=== PATIENT | male | born 1965 | race Caucasian/White ===

== ENCOUNTER → 2022-01-02 11:08 | Outpatient (BNVA) | payer MEDICAID, SELFPAY | PROVIDERS: PCP Nurse Practitioner Family; Visit Provider Nurse Practitioner Family | DX: R63.5 Abnormal weight gain (principal); Z12.5 Encounter for screening for malignant neoplasm of prostate; Z13.6 Encounter for screening for cardiovascular disorders; R52 Pain, unspecified; R05.9 Cough, unspecified | CPT/HCPCS: 80053; 80061; 84443; 85025; G0103 ==

== ENCOUNTER → 2022-07-16 08:59 | Outpatient (BNVA) | payer BC, MEDICAID, SELFPAY | PROVIDERS: PCP Nurse Practitioner Family; Referring Provider Family Medicine; Visit Provider Physician Assistant | DX: M47.16 Other spondylosis with myelopathy, lumbar region (principal) | CPT/HCPCS: 72110 ==

== ENCOUNTER 2022-09-02 09:07 | Outpatient (CLI) | payer BC, MEDICAID, SELFPAY ==
--- NOTE | 2022-09-02 09:13 | MR_ITS ---
WS: [id number] MRI LUMBAR SPINE NONCONTRAST HISTORY: back pain, RIGHT leg pain. COMPARISON: None available. TECHNIQUE: Sagittal and axial multisequence imaging is submitted. Increase in the lumbar lordosis. Mild degenerative changes at the thoracolumbar junction. Mild anteri or wedging of T10 and T11. No acute fracture. Disc spaces and vertebral body heights are well-preserved. Conus terminates normally at L1-2 disc level. T12-L1: Small bilateral proximal foraminal disc protrusion without stenosis. L1-L2: Moderate bilateral facet joint arthritis and ligamentum flavum arthritis. Mild bilateral onel inal narrowing. Mild encroachment into the central canal by facet disease. L2-L3: Mild annular disc bulging, osteophytic ridging and facet arthritis. Small amount of fluid in t he facet joints. Mild LEFT foraminal stenosis. Very mild encroachment upon the subarticular recesses. L3-L4: Diffuse annular disc bulging with moderate ligamentum flavum and circumferential osteophytosis . Disc and osteophyte encroachment upon the thecal sac and foramina. Small central disc protrusion is also likely. There is moderate central, bilateral subarticular recess and foraminal stenosis. There is contact on the L3 and L4 nerve roots. L4-L5: Mild disc bulging with moderate ligamentum flavum and facet arthritis. Osteophytic ridging and facet arthritis. Bilateral subarticular and foraminal stenosis. There is significant encroachment on the exiting L4 nerve roots bilaterally. There may be an osteophyte contacting the RIGHT L4 nerve genaro t. L5-S1: Mild disc bulging with a small disc osteophyte complex in the LEFT foramen. Mild LEFT foramina l stenosis. MR/MR lumbar spine wo con* [id number] IMPRESSION: 1. No high-grade central stenosis. 2. Moderate central, bilateral subarticular recess and foraminal stenosis at L 3-4. Disc, osteophyte and facet arthritis encroaching upon the L3 and L4 nerve roots. 3. Significant encroachment upon the exiting L4 nerve roots at L4-5. Suspected osteophyte also contacting the RIGHT L4 nerve root. 4. Mild LEFT foraminal stenosis at L5-S1. 5. Mild foraminal stenosis at L1-2 and on the LEFT at L2-3.
== END 2022-09-02 09:08 | disposition home or self-care (01) ==
LOC: RAD 09:07
PROVIDERS: PCP Nurse Practitioner Family; Visit Provider Physician Assistant
DX: M54.16 Radiculopathy, lumbar region (principal); M48.061 Spinal stenosis, lumbar region without neurogenic claudication; M48.07 Spinal stenosis, lumbosacral region
CPT/HCPCS: 72148

== ENCOUNTER 2022-12-26 14:10 | Emergency (ER) | payer BC, MEDICAID, SELFPAY ==
[2022-12-26 14:19] VITALS: BP 153/83; PULSE 67; RESP 18; TEMP 36.4; O2SAT 97
[2022-12-26 15:05] LABS: Basophils # 0.1 10^3/uL (0.0-0.1); Eosinophils # 0.3 10^3/uL (0.0-0.8); Eosinophils % 2.3 %; Hematocrit 51.6 % (42.0-52.0); Hemoglobin 16.3 g/dL (11.7-16.6); Lymphocytes # 2.2 10^3/uL (0.8-4.8); Lymphocytes % 18.5 %; Mean Corpuscular HGB Conc 31.6 g/dL (30.0-36.0); Mean Corpuscular Hemoglobin 31.3 pg (28.0-34.0); Mean Platelet Volume 11.1 fL (7.4-10.4); Monocytes # 1.1 10^3/uL (0.2-0.9); Monocytes % 8.8 %; Neutrophils # 8.21 10^3/uL (1.8-7.7); Neutrophils % 68.8 %; Nucleated Red Blood Cells % 0 %; Platelet Count 243 10^3/cmm (130-400); Red Blood Count 5.21 10^6/uL (4.1-5.3); Red Cell Distribution Width 14.5 % (12.1-15.1); White Blood Count 11.9 10^3/uL (4.0-10.0)
--- NOTE | 2022-12-26 15:23 | PC.NURSE ---
After blood draw pt c/o chest pain, EKG done in triage room and shown to Dr Berrios. Pt denies other complaints, states he just feels stressed.
[2022-12-26 15:30] LABS: Alanine Aminotransferase 28 U/L (0-41); Albumin Level 3.7 g/dL (3.5-5.2); Alkaline Phosphatase 88 U/L (40-130); Anion Gap 11.8 (5-19); Aspartate Amino Transferase 14 U/L (0-40); Blood Urea Nitrogen 14 mg/dL (6-20); Calcium 8.8 mg/dL (8.5-10.5); Carbon Dioxide 30 mmol/L (22-29); Chloride 100 mmol/L (98-107); Globulin 3.1 g/dL (1.3-4.6); Glomerular Filtration Rate 87.3 mL/min (90-130); Glucose 141 mg/dL (65-115); Osmolality Calculated 287 mOsm/kg (285-295); Potassium 4.8 mmol/L (3.5-5.1); Sodium 137 mmol/L (136-145); Total Bilirubin 0.5 mg/dL (0.15-1.2); Total Protein 6.8 g/dL (6.6-8.7)
--- NOTE | 2022-12-26 16:08 | ED_ITS ---
HPI - Headache General: Chief Complaint: Headache Stated Complaint: Head, Neck, and Shoulder pain Time Seen by Provider: 12/26/22 16:04 Source: patient Mode of arrival: ambulatory History of Present Illness: 57-year-old male presents emergency room complaining of head neck and shoulder pain. He had an epidural injection 3 days ago for low back pain with radicular symptoms. Since then he has been having a headache is worse when he sits up better a little bit when he lays down. He has not had any fevers sweats or chills. He is tried various [id number] medications for it with no relief. He denies any chest pain with this. No significant loss of vision. No difficulty speech or swallowing. MD elicited complaint: headache Onset (ago): day(s) (3) Onset description: gradually Location: left, frontal, temporal and down into neck Severity: moderate Quality & Timing: throbbing Exacerbating factors: none Relieving factors: nothing Associated symptoms: Deny chest pain, confusion, cough, diaphoresis, eye pain, eye redness, fever(s), lightheadedness, loss of vision, malaise, nausea, neck stiffness, numbness, paresthesias, photophobia, pre-syncope, rash, seizures, short of breath, sound sensitivity, syncope, vomiting or weakness Treatments prior to arrival: acetaminophen and ibuprofen Review of Systems Const: Denies: fever(s), chills, fatigue, malaise or diaphoresis ENMT: Denies: throat pain, ear or mastoid pain, nasal discharge or nasal congestion Card: Denies: chest pain, lightheadedness, syncope or pre-syncope Resp: Denies: dyspnea, productive cough or non-productive cough GI: Denies: nausea or vomiting : Denies: flank pain, dysuria, urinary frequency or urinary urgency Skin/Breast: Denies: rash Neuro: Denies: confusion PFSH ED PFSH: Medical History Family history of colon cancer History of diverticulitis Surgical History History of nasal surgery History of rotator cuff surgery Left shoulder 1987 Hx of colonoscopy 2013 Family History Father Cancer Colon Cancer Social History Smoking and tobacco status: current every day smoker Second hand smoke exposure: No Smoking risk assessment/counseling performed?: No Alcohol intake: never Desire information about alcohol rehabilitation?: No Counseling given: No Desire information about substance/drug rehabilitation?: No Counseling given: No Adopted: No Caregiver/support person: No Lives independently: Yes Household members: friend(s) Housing: House Marital status: Single Number of children: 5 Highest education level completed: 10th Grade service: No Current occupational status: disabled Physical Exam Const: COMMON NORMALS: no acute distress GENERAL APPEARANCE: cooperative and comfortable ORIENTATION/CONSCIOUSNESS: Yes awake, Yes oriented to person, Yes oriented to place and Yes oriented to time HENMT: COMMON NORMALS: normocephalic, atraumatic and hearing grossly normal bilaterally HEAD & SCALP: normocephalic and atraumatic Eye: DIRECT OPHTHALMOSCOPY: No photophobia Resp: COMMON NORMALS: normal respiratory effort, No retractions, No use of accessory muscles and clear to auscultation bilaterally AUSCULTATION: clear to auscultation bilaterally Cardio: COMMON NORMALS: regular rate, regular rhythm and No murmurs present (Cardio) RATE: regular rate RHYTHM: regular rhythm GI: COMMON NORMALS: Soft to palpation and No hepatosplenomegaly present AUSCULTATION: Yes normoactive bowel sounds PALPATION: Yes Soft to palpation, No Tenderness to palpation present (GI), No Guarding due to palpation present (GI) and Yes No hepatosplenomegaly present Extremity: COMMON NORMALS: normal to inspection, capillary refill normal, no clubbing, cyanosis or edema, no calf tenderness and no pedal edema Neuro: SENSORIUM/ORIENTATION: Yes oriented to person, Yes oriented to place and Yes oriented to time OTHER: No focal neurologic deficits Skin: COMMON NORMALS: no rashes or lesions noted GENERAL SKIN EXAM: no rashes or lesions noted Course Vital Signs: Vital signs: Vital Signs Temperature 97.5 F L 12/26/22 14:19 Pulse Rate 58 L 12/26/22 18:32 Respiratory Rate 16 12/26/22 18:32 Blood Pressure 134/84 12/26/22 18:32 Pulse Oximetry 95 12/26/22 18:32 Oxygen Delivery Me thod 12/26/22 14:19 MDM - Headache Medical Decision Making Patient feeling better after fluids and medication. I did call and discussed Dr. Walter who did his injection it was a foraminal nerve root injection they did not merino the dura so this is not a post spinal tap headache and on exam and by his history it does not sound as if it is a spinal type headache he actually states he feels better when he is sitting up little bit and worse when lying down flat. Discharge patient home with steroid taper use previously prescribed pain medications and follow-up with the pain clinic Medical Records I reviewed the patient's medical records. Lab Data I reviewed the patient's lab results. 12/26/22 15:00 12/26/22 15:[address] 12/26/22 17:20 IMPRESSION: 1. No acute intracranial abnormality. 2. 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 Laboratory Results WBC 11.9 10^3/uL (4.0-10.0) H 12/26/22 15:00 RBC 5.21 10^6/uL (4.1-5.3) 12/26/22 15:00 Hgb 16.3 g/dL (11.7-16.6) 12/26/22 15:00 Hct 51.6 % (42.0-52.0) 12/26/22 15:00 MCV 99.0 fl (80-94) H 12/26/22 15:00 MCH 31.3 pg (28.0-34.0) 12/26/22 15:00 MCHC 31.6 g/dL (30.0-36.0) 12/26/22 15:00 RDW 14.5 % (12.1-15.1) 12/26/22 15:00 Plt Count 243 10^3/cmm (130-400) 12/26/22 15:00 MPV 11.1 fL (7.4-10.4) H 12/26/22 15:00 Neut % (Auto) 68.8 % 12/26/22 15:00 Lymph % (Auto) 18.5 % 12/26/22 15:00 [place] % (Auto) 8.8 % 12/26/22 15:00 Eos % (Auto) 2.3 % 12/26/22 15:00 Baso % (Auto) 1.0 % 12/26/22 15:00 Neut # (Auto) 8.21 10^3/uL (1.8-7.7) H 12/26/22 15:00 Lymph # (Auto) 2.2 10^3/uL (0.8-4.8) 12/26/22 15:00 [place] # (Auto) 1.1 10^3/uL (0.2-0.9) H 12/26/22 15:00 Eos # (Auto) 0.3 10^3/uL (0.0-0.8) 12/26/22 15:00 Baso # (Auto) 0.1 10^3/uL (0.0-0.1) 12/26/22 15:00 Nucleated RBC % (auto) 0 % 12/26/22 15:00 Nucleated RBCs # 0.0 /100WBC 12/26/22 15:00 Sodium 137 mmol/L (136-145) 12/26/22 15:00 Potassium 4.8 mmol/L (3.5-5.1) 12/26/22 15:00 Chloride 100 mmol/L (98-107) 12/26/22 15:00 Carbon Dioxide 30 mmol/L (22-29) H 12/26/22 15:00 Anion Gap 11.8 (5-19) 12/26/22 15:00 BUN 14 mg/dL (6-20) 12/26/22 15:00 Creatinine 0.9 mg/dL (0.7-1.2) 12/26/22 15:00 GFR Calculation 87.3 mL/min (90-130) L 12/26/22 15:00 Glucose 141 mg/dL (65-115) H 12/26/22 15:00 Calculated Osmolality 287 mOsm/kg (285-295) 12/26/22 15:00 Calcium 8.8 mg/dL (8.5-10.5) 12/26/22 15:00 Total Bilirubin 0.5 mg/dL (0.15-1.2) 12/26/22 15:00 AST 14 U/L (0-40) 12/26/22 15:00 ALT 28 U/L (0-41) 12/26/22 15:00 Alkaline Phosphatase 88 U/L (40-130) 12/26/22 15:00 Total Protein 6.8 g/dL (6.6-8.7) 12/26/22 15:00 Albumin 3.7 g/dL (3.5-5.2) 12/26/22 15:00 Globulin 3.1 g/dL (1.3-4.6) 12/26/22 15:00 Discharge Plan Discharge Patient Disposition: Home Clinical Impression: Headache Condition: Stable Prescriptions: New prednisone 20 mg tablet 20 mg PO TID Qty: 15 0RF Rx Instructions: 1 p.o. 3 times daily x3 days, 1 p.o. twice daily x2 days, 1 p.o. daily x2 days No Action mupirocin 2 % ointment 1 applic topical BID Qty: 22 1RF triamcinolone acetonide 0.05 % ointment 1 applic topical BID Qty: 80 1RF hydrocodone-acetaminophen 7.5-325 mg tablet 1 tab PO BID PRN (Reason: pain) 30 Days Qty: 60 0RF ibuprofen 400 mg tablet 400 mg PO TID PRN (Reason: pain) Qty: 90 1RF Rx Instructions: headache and inflammation ondansetron HCl 4 mg tablet 4 mg PO Q6H PRN (Reason: nausea and vomiting) Qty: 60 3RF Discharge Orders: Discharge ED (Routine); Ordered 12/26/22 Ordered By: Nabor Berrios Referrals: Trisitn Byrne DO [Primary Care Provider] - Discharge Diet: Usual diet Discharge Activity: Increase activity as tolerated Patient Instructions: Opioid Safety, Pain Management Activity Restrictions/Additional Instructions: You are seen today for headache with neck and arm pain. CT of your head was negative. Recommend you take the steroid dose and taper. 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
[2022-12-26] MEDS: ketorolac 30 mg/mL INJ IVP (16:30)
[2022-12-26] MEDS: promethazine 25 mg/mL SDV 1 mL IM (16:31)
[2022-12-26] MEDS: sodium chloride 0.9% 1,000 ML 999 ML IV (16:31)
[2022-12-26 16:37] VITALS: BP 137/84; PULSE 65; RESP 16; O2SAT 95
--- NOTE | 2022-12-26 17:07 | PC.NURSE ---
PT RESTING IN BED. LIGHTS DIMMED DUE TO LIGHTS MAKING HEADACHE WORSE. PT RR EVEN AND UNLABORED.
--- NOTE | 2022-12-26 17:20 | CTR_ITS ---
PROCEDURE INFORMATION: Exam: CT Head Without Contrast Exam date and time: 12/26/2022 5:36 PM Age: 57 years old Clinical indication: Pain; Headache; Additional info: New onset headache TECHNIQUE: Imaging protocol: Computed tomography of the head without contrast. Radiation optimization: All CT scans at this facility use at least one of these dose optimization techniques: automated exposure control; mA and/or kV adjustment per patient size (includes targeted exams where dose is matched to clinical indication); or iterative reconstruction. REPORTING DATA: Count of CT and Cardiac NM exams in prior 12 months: This patient has received 0 known CTs and 0 known cardiac nuclear medicine studies in the 12 months prior to the current study. COMPARISON: No relevant prior studies available. RADIATION DOSE METRICS: Total DLP (mGy-cm): 1101.48 FINDINGS: Brain: No acute infarct. No hemorrhage. Unremarkable white matter. No mass effect. Cerebral ventricles: No ventriculomegaly. 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 Paranasal sinuses: Visualized sinuses are unremarkable. No fluid levels. Scattered paranasal sinus mucosal thickening, without air-fluid level present. Mastoid air cells: Visualized mastoid air cells are well aerated. Bones/joints: Unremarkable. No acute fracture. Soft tissues: Unremarkable. CT/CT head wo con* [id number] IMPRESSION: 1. No acute intracranial abnormality. 2. 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
[2022-12-26 18:00] VITALS: BP 139/73; PULSE 55; O2SAT 94
[2022-12-26 18:32] VITALS: BP 134/84; PULSE 58; RESP 16; O2SAT 95
== END 2022-12-26 18:33 | disposition home or self-care (01) ==
PROVIDERS: Emergency Medicine; Emergency Provider Family Medicine; PCP Family Medicine
DX: R51.9 Headache, unspecified (principal); F17.210 Nicotine dependence, cigarettes, uncomplicated
CPT/HCPCS: 36415; 70450; 80053; 85025; 96361; 96372; 96374; 99285; J1885; J2550; J7030

== ENCOUNTER → 2022-12-31 15:21 | Outpatient (BNVA) | payer BC, MEDICAID, SELFPAY | PROVIDERS: PCP Family Medicine; Visit Provider Orthopaedic Surgery | DX: M48.062 Spinal stenosis, lumbar region with neurogenic claudication (principal); M16.0 Bilateral primary osteoarthritis of hip; M41.9 Scoliosis, unspecified | CPT/HCPCS: 73502 ==

== ENCOUNTER 2024-01-25 13:46 | Emergency (ER) | payer OTHER, SELFPAY ==
[2024-01-25 13:58] VITALS: BP 152/79; PULSE 67; RESP 18; TEMP 36.6; O2SAT 94; BMI 54.9
--- NOTE | 2024-01-25 14:14 | W.ED.ABDPA2 ---
HPI - Abdominal Pain General: Chief Complaint: Abdominal Pain Stated Complaint: abd pain Time Seen by Provider: 01/25/24 14:04 History of Present Illness: 58-year-old pleasant gentleman comes in today with right abdominal pain that started in the right lower abdomen and now radiates to his groin and into his right flank. Patient reports the pain started 2 to 3 days ago. Patient had a normal bowel movement last night. Patient noted no blood in stool or urine. Patient has had a colonoscopy and endoscopy in the past without any concerns. Patient has had no abdominal surgeries. Patient takes no routine medications and denies chronic medical problems. Review of the patient's record notes that tamsulosin has been ordered in the past for patient. Patient is morbidly obese. Patient reports no blood sugar problems. Patient does use nicotine. Review of Systems General: Reports: 10 or more systems reviewed and unremarkable except in HPI and below GI: Reports: abdominal pain PFSH ED PFSH: Medical History Family history of colon cancer History of diverticulitis Surgical History History of nasal surgery History of rotator cuff surgery Left shoulder 1988 Hx of colonoscopy 2014 Family History Father Cancer Colon Cancer Social History Smoking and tobacco/nicotine status: current every day tobacco/nicotine user Second hand smoke exposure: No Alcohol intake: never Substance/Drug Use: never Adopted: No Caregiver/support person: No Lives independently: Yes Household members: friend(s) Housing: House Marital status: Single Number of children: 5 Highest education level completed: 10th Grade service: No Current occupational status: disabled Physical Exam Const: COMMON NORMALS: alert HENMT: COMMON NORMALS: normocephalic HEAD & SCALP: normocephalic Neck/C-Spine: COMMON NORMALS: full ROM Resp: COMMON NORMALS: normal respiratory effort and clear to auscultation bilaterally AUSCULTATION: clear to auscultation bilaterally Cardio: COMMON NORMALS: regular rate and regular rhythm RATE: regular rate RHYTHM: regular rhythm GI: COMMON NORMALS: Soft to palpation AUSCULTATION: Yes normoactive bowel sounds PALPATION: Yes Soft to palpation and Yes Tenderness to palpation present (GI) Details: RLQ and RUQ : BLADDER/KIDNEY EXAM: Yes CVA tenderness on the right Back/Pelvis: GENERAL BACK: Yes CVA tenderness LUMBAR SPINE/LOWER BACK: Yes paraspinal muscle tenderness Lumbar paraspinal muscle tenderness: right Extremity: COMMON NORMALS: normal to inspection and no pedal edema Neuro: SENSORIUM/ORIENTATION: Yes alert Skin: COMMON NORMALS: turgor normal GENERAL SKIN EXAM: turgor normal Course Vital Signs: Vital signs: Vital Signs Temperature 97.9 F 01/25/24 13:58 Pulse Rate 64 01/25/24 14:57 Respiratory Rate 16 01/25/24 14:57 Blood Pressure 145/82 01/25/24 14:57 Pulse Oximetry 92 01/25/24 14:57 Oxygen Delivery Me thod Room Air 01/25/24 14:57 MDM - Abdominal Pain Medical Decision Making 58-year-old male patient comes in today for complaints of right abdominal pain. Patient appears nontoxic. Patient is morbidly obese. Patient has tenderness to palpation of the right abdomen. Patient reports tenderness to the right paraspinous muscles. Patient has right CVA tenderness. Vital signs are normal except for some mild elevation of blood pressure at 152. Differential diagnosis includes not limited to gallbladder disease, appendicitis, renal calculi, muscle strain, diverticulitis. CBC CMP and urinalysis were unremarkable. CT of the abdomen and pelvis noted no acute fractures, gallbladder disease or gallstones, appendicitis, colitis, diverticulitis. Appendix reviewed normally. Patient did have some esophagitis versus a mass at the distal esophagus. I reviewed this abnormality with the patient who has been seen before for some difficulty swallowing and has had EGD and Botox treatments. Recommended patient follow back up with his specialist for further evaluation and treatment of this abnormality. Patient will be treated for a muscle strain of the back. With recommendations for further evaluation and treatment as needed. Patient stated understanding and agreed to plan. Lab Data 01/25/24 14:19 01/25/24 14:19 Labs/Radiology: Radiology Impressions Abdomen/Pelvis CT 01/25/24 14:56 IMPRESSION: Nonspecific distal esophageal wall thickening. Esophagitis or underlying mass lesion cannot be excluded. Recommend clinical correlation. Laboratory Results WBC 9.23 10^3/uL (3.29-11.43) 01/25/24 14:19 RBC 4.73 10^6/uL (3.85-5.65) 01/25/24 14:19 Hgb 14.80 g/dL (11.27-16.99) 01/25/24 14:19 Hct 45.3 % (37-53) 01/25/24 14:19 MCV 95.8 fl (82-101) 01/25/24 14:19 MCH 31.3 pg (27-33) 01/25/24 14:19 MCHC 32.7 g/dL (30-55) 01/25/24 14:19 RDW 14.0 % (12.1-15.1) 01/25/24 14:19 Plt Count 260 10^3/cmm (157-399) 01/25/24 14:19 MPV 10.9 fL (7.4-10.4) H 01/25/24 14:19 Neut % (Auto) 67.5 % 01/25/24 14:19 Lymph % (Auto) 20.4 % 01/25/24 14:19 [place] % (Auto) 7.4 % 01/25/24 14:19 Eos % (Auto) 3.4 % 01/25/24 14:19 Baso % (Auto) 1.0 % 01/25/24 14:19 Neut # (Auto) 6.24 10^3/uL (1.8-7.7) 01/25/24 14:19 Lymph # (Auto) 1.9 10^3/uL (0.8-4.8) 01/25/24 14:19 [place] # (Auto) 0.7 10^3/uL (0.2-0.9) 01/25/24 14:19 Eos # (Auto) 0.3 10^3/uL (0.0-0.8) 01/25/24 14:19 Baso # (Auto) 0.1 10^3/uL (0.0-0.1) 01/25/24 14:19 Nucleated RBC % (auto) 0 % 01/25/24 14:19 Nucleated RBCs # 0.0 /100WBC 01/25/24 14:19 Sodium 139 mmol/L (136-145) 01/25/24 14:19 Potassium 4.2 mmol/L (3.5-5.1) 01/25/24 14:19 Chloride 102 mmol/L (98-107) 01/25/24 14:19 Carbon Dioxide 28 mmol/L (22-29) 01/25/24 14:19 Anion Gap 13.2 (5-19) 01/25/24 14:19 BUN 12 mg/dL (6-20) 01/25/24 14:19 Creatinine 0.8 mg/dL (0.7-1.2) 01/25/24 14:19 GFR Calculation 99.6 mL/min (90-130) 01/25/24 14:19 Glucose 123 mg/dL (65-115) H 01/25/24 14:19 Calculated Osmolality 289 mOsm/kg (285-295) 01/25/24 14:19 Calcium 8.3 mg/dL (8.5-10.5) L 01/25/24 14:19 Total Bilirubin 0.6 mg/dL (0.15-1.2) 01/25/24 14:19 AST 15 U/L (0-40) 01/25/24 14:19 ALT 18 U/L (0-41) 01/25/24 14:19 Alkaline Phosphatase 79 U/L (40-130) 01/25/24 14:19 Total Protein 7.0 g/dL (6.6-8.7) 01/25/24 14:19 Albumin 3.9 g/dL (3.5-5.2) 01/25/24 14:19 Globulin 3.1 g/dL (1.3-4.6) 01/25/24 14:19 Lipase 17 U/L (13-60) 01/25/24 14:19 Urine Color Yellow (Yellow) 01/25/24 15:14 Urine Appearance Clear (CLEAR) 01/25/24 15:14 Urine pH 5 (5-7) 01/25/24 15:14 Ur Specific [place] 1.020 (1.005-1.030) 01/25/24 15:14 Urine Protein Neg (Negative) 01/25/24 15:14 Urine Glucose (UA) Norm (Normal) 01/25/24 15:14 Urine Ketones Negative (Negative) 01/25/24 15:14 Urine Blood Neg (Negative) 01/25/24 15:14 Urine Nitrate Negative (Negative) 01/25/24 15:14 Urine Bilirubin Neg (Negative) 01/25/24 15:14 Urine Urobilinogen Norm mg/dL (Negative) 01/25/24 15:14 Ur Leukocyte Esterase Negative (Negative) 01/25/24 15:14 All radiology interpretation(s) finalized by discharge Discharge Plan Discharge Patient Disposition: Home Clinical Impression: Lumbar strain Qualifiers: Encounter type: initial encounter Qualified Code(s): S39.012A - Strain of muscle, fascia and tendon of lower back, initial encounter Condition: Stable Prescriptions: New celecoxib 200 mg capsule 200 mg PO BID Qty: 20 0RF Rx Instructions: do not take with ibuprofen or naproxen cyclobenzaprine 10 mg tablet 10 mg PO BID PRN (Reason: muscle spasm) Qty: 20 0RF No Action (DME) Knee Brace See Rx Instructions .Route .MEDSUPPLY Qty: 1 0RF Rx Instructions: As directed Aspir-81 81 mg Tablet,Delayed Release (Dr/Ec) 162 mg PO DAILY PRN (Reason: Chest Pain) albuterol sulfate 90 mcg/actuation Hfa Aerosol Inhaler 2 puff INHALATION QID PRN (Reason: Shortness Of Breath Or Wheezing) Super Beta Prostate Advanced 2 tab PO BEDTIME tamsulosin 0.4 mg capsule 0.4 mg PO BEDTIME ibuprofen 400 mg tablet 400 - 800 mg PO BEDTIME PRN (Reason: pain) Discharge Orders: Discharge ED (Routine); Ordered 01/25/24 Ordered By: Sudeep Perea Referrals: Tristin Byrne DO [Primary Care Provider] - Discharge Diet: Usual diet Discharge Activity: Increase activity as tolerated Patient Instructions: Back Pain (ED) Activity Restrictions/Additional Instructions: Activity as tolerated. Ice or heat for further pain relief. Drink plenty of water. Take medications as directed. Follow-up with primary care for further evaluation. Follow-up with primary care regarding abnormality of the distal esophagus on the CT scan. 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
[2024-01-25 14:25] LABS: Basophils # 0.1 10^3/uL (0.0-0.1); Eosinophils # 0.3 10^3/uL (0.0-0.8); Eosinophils % 3.4 %; Hematocrit 45.3 % (37-53); Lymphocytes # 1.9 10^3/uL (0.8-4.8); Lymphocytes % 20.4 %; Mean Corpuscular HGB Conc 32.7 g/dL (30-55); Mean Corpuscular Hemoglobin 31.3 pg (27-33); Mean Corpuscular Volume 95.8 fl (82-101); Mean Platelet Volume 10.9 fL (7.4-10.4); Monocytes # 0.7 10^3/uL (0.2-0.9); Monocytes % 7.4 %; Neutrophils # 6.24 10^3/uL (1.8-7.7); Neutrophils % 67.5 %; Nucleated Red Blood Cells % 0 %; Platelet Count 260 10^3/cmm (157-399); Red Blood Count 4.73 10^6/uL (3.85-5.65); White Blood Count 9.23 10^3/uL (3.29-11.43)
[2024-01-25 14:42] LABS: Alanine Aminotransferase 18 U/L (0-41); Albumin Level 3.9 g/dL (3.5-5.2); Alkaline Phosphatase 79 U/L (40-130); Anion Gap 13.2 (5-19); Aspartate Amino Transferase 15 U/L (0-40); Blood Urea Nitrogen 12 mg/dL (6-20); Calcium 8.3 mg/dL (8.5-10.5); Carbon Dioxide 28 mmol/L (22-29); Chloride 102 mmol/L (98-107); Creatinine Clr Calc Pharmacy 172.9772; Globulin 3.1 g/dL (1.3-4.6); Glomerular Filtration Rate 99.6 mL/min (90-130); Glucose 123 mg/dL (65-115); Lipase 17 U/L (13-60); Osmolality Calculated 289 mOsm/kg (285-295); Potassium 4.2 mmol/L (3.5-5.1); Sodium 139 mmol/L (136-145); Total Bilirubin 0.6 mg/dL (0.15-1.2)
[2024-01-25 14:52] VITALS: RESP 18; O2SAT 90
[2024-01-25] MEDS: ketorolac 30 mg/mL INJ 15 MG IVP (14:52)
[2024-01-25] MEDS: morphine 4 mg/mL SDV 1 mL IVP (14:52)
[2024-01-25] MEDS: ondansetron 2 mg/ML SDV 2 mL 4 MG IVP (14:53)
--- NOTE | 2024-01-25 14:56 | CTR_ITS ---
PROCEDURE INFORMATION: Exam: CT Abdomen And Pelvis With Contrast Exam date and time: 01/25/2024 3:22 PM Age: 58 years old Clinical indication: Abdominal pain; Generalized; Additional info: Diffuse abd pain TECHNIQUE: Imaging protocol: Computed tomography of the abdomen and pelvis with contrast. Radiation optimization: All CT scans at this facility use at least one of these dose optimization techniques: automated exposure control; mA and/or kV adjustment per patient size (includes targeted exams where dose is matched to clinical indication); or iterative reconstruction. Contrast material: OMNI 350; Contrast volume: 100 ml; Contrast route: INTRAVENOUS (IV); COMPARISON: CR XR hip RT 2-3V wo/w pel* [id number] 12/31/2022 3:22 PM RADIATION DOSE METRICS: Total DLP (mGy-cm): 1451 FINDINGS: Lungs: Mild bibasilar atelectasis/scar. Esophagus: Nonspecific distal esophageal wall thickening. Liver: The liver is unremarkable in appearance. Gallbladder and bile ducts: Gallbladder unremarkable in appearance without radio-opaque stone. No intra or extrahepatic biliary ductal dilation. Pancreas: Pancreas is unremarkable in appearance. No ductal dilation. Spleen: The spleen is normal in size and contour. Adrenal glands: Adrenal glands are unremarkable in appearance. Kidneys and ureters: Kidneys and ureters are unremarkable in appearance. No hydronephrosis. No radio-opaque stone. Stomach and bowel: Stomach and bowel grossly unremarkable. No evidence of bowel obstruction. Scattered colonic diverticula. Appendix: Appendix is normal. Intraperitoneal space: Unremarkable. No free air. No significant fluid collection. Vasculature: Unremarkable. No abdominal aortic aneurysm. Lymph nodes: Unremarkable. No enlarged lymph nodes. Urinary bladder: Nondistended bladder Reproductive: Unremarkable as visualized. Bones/joints: No acute bony abnormality. Soft tissues: Visualized subcutaenous tissues are unremarkable. CT/CT abdomen pelvis w con* [id number] IMPRESSION: Nonspecific distal esophageal wall thickening. Esophagitis or underlying mass lesion cannot be excluded. Recommend clinical correlation.
[2024-01-25 14:57] VITALS: BP 145/82; PULSE 64; RESP 16; O2SAT 92
[2024-01-25 15:20] LABS: Add Urine Microscopic? NO; Charge for UA Resulting for Rev
[2024-01-25] MEDS: iohexol 350 mg/mL 500 mL Btl (per mL) IV (15:25)
[2024-01-25 15:32] LABS: Bilirubin Urine Neg (Negative); Blood Urine Neg (Negative); Glucose Urine UA Norm (Normal); Ketones Urine Negative (Negative); Leukocyte Esterase Urine Negative (Negative); Nitrate Urine Negative (Negative); Protein Urine Neg (Negative); Urine Appearance Clear (CLEAR); Urine Color Yellow (Yellow); Urobilinogen Urine Norm (Negative); pH Urine 5 (5-7)
[2024-01-25] MEDS: dexamethasone 10 mg/mL INJ IVP (16:40)
[2024-01-25 16:56] VITALS: BP 145/82; PULSE 64; RESP 16; O2SAT 92
== END 2024-01-25 16:57 | disposition home or self-care (01) ==
PROVIDERS: Internal Medicine; Emergency Provider Nurse Practitioner Family; PCP Family Medicine
DX: S39.012A Strain of muscle, fascia and tendon of lower back, initial encounter (principal); Z72.0 Tobacco use; Z79.82 Long term (current) use of aspirin; E66.01 Morbid (severe) obesity due to excess calories; Z68.43 Body mass index [BMI] 50.0-59.9, adult; X58.XXXA Exposure to other specified factors, initial encounter
CPT/HCPCS: 36415; 74177; 80053; 81003; 83690; 85025; 96374; 96375; 99285; J1100; J1885; J2270; J2405; Q9967

== ENCOUNTER 2024-06-08 15:31 | Outpatient (CLI) | payer OTHER, SELFPAY | END 2024-06-08 15:32 | disposition home or self-care (01) | LOC: SLEEP 15:33 | PROVIDERS: PCP Family Medicine; Visit Provider Family Medicine | DX: G47.33 Obstructive sleep apnea (adult) (pediatric) (principal) | CPT/HCPCS: G0399 ==

== ENCOUNTER 2024-12-20 13:08 | Inpatient (IN) | payer OTHER, SELFPAY ==
[2024-12-20] VITALS (37 sets, daily range): BP systolic 103–161; BP diastolic 61–112; PULSE 60–84; RESP 10–24; TEMP 36.8–37.2; O2SAT 87–95; BMI 56.2; BMI 53.0
--- NOTE | 2024-12-20 13:14 | ECG_ITS ---
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 Measurements Intervals [place] Rate: 68 P: 49 DC: 145 QRS: 71 QRSD: 109 T: 41 QT: 384 QTc: 411 Interpretive Statements SINUS RHYTHM POSSIBLE LEFT ATRIAL ENLARGEMENT [-0.1mV P-WAVE IN V1/V2] LOW QRS VOLTAGE IN PRECORDIAL LEADS [QRS DEFLECTION < 1.0 mV IN CHEST LEADS] INCOMPLETE RIGHT BUNDLE BRANCH BLOCK [90+ ms QRS DURATION, TERMINAL R IN V1/V2, 40+ ms S IN I/aVL/V4/V5/V6] No previous ECG available for comparison Electronically Signed On 12-20-2024 20:28:20 AVIONICS SUPERVISOR by Domingo Guerra M.D. [email or web address] [id number]
--- NOTE | 2024-12-20 13:22 | XR_ITS ---
WS: [id number] Exam: XR chest 1V portable [id number] Date/Time of Exam: 12/20/2024 1:27 PM Reason For Exam: chest pain No priors. The lungs are fully inflated and clear. Normal cardiomediastinal silhouette and regional bony elements. XR/XR chest 1V portable [id number] IMPRESSION: 1. Negative chest.
--- NOTE | 2024-12-20 13:24 | W.ED.CHESTPA ---
HPI - Chest Pain General: Chief Complaint: Chest Pain Stated Complaint: cp, right hand numb Time Seen by Provider: 12/20/24 13:22 History of Present Illness: 59-year-old male presents emergency room complaining of chest pain radiating to his left arm. Stated complaints of his right hand #1 I talked to the patient he indicated it was the left. When I pointed out to him the difference he said no it is always been the left hand. He has lower substernal chest pain it is not radiating to his back or neck. He has some mild shortness of breath with that he said flulike symptoms for the last several days as well. He has not had any hemoptysis nonproductive cough. He complains of fever myalgias and some headache as well Associated symptoms: Reports fever(s); Deny abdominal pain or dyspnea Related Data Home Medications ?Medication ?Instructions ?Recorded ?Confirmed No Known Home Medications 12/20/24 12/20/24 Allergies Allergy/AdvReac Type Severity Reaction Status Date / Time No Known Allergies Allergy Verified 12/20/24 13:16 Review of Systems Const: Reports: fever(s), body aches, fatigue and malaise; Denies: chills Card: Reports: chest pain and dyspnea on exertion Resp: Denies: dyspnea GI: Denies: abdominal pain : Denies: dysuria, urinary frequency or urinary urgency Musc: Denies: neck pain or back pain Skin/Breast: Denies: rash Neuro: Reports: headache(s) PFSH ED PFSH: Medical History Family history of colon cancer History of diverticulitis Surgical History History of rotator cuff surgery Left shoulder 1987 History of nasal surgery Hx of colonoscopy 2013 Family History Father Cancer Colon Cancer Social History Smoking and tobacco/nicotine status: current every day tobacco/nicotine user Second hand smoke exposure: No Alcohol intake: never Substance/Drug Use: never Adopted: No Caregiver/support person: No Lives independently: Yes Household members: friend(s) Housing: House Marital status: Single Number of children: 5 Highest education level completed: 10th Grade service: No Current occupational status: disabled Physical Exam Const: GENERAL APPEARANCE: cooperative ORIENTATION/CONSCIOUSNESS: Yes awake, Yes oriented to person, Yes oriented to place and Yes oriented to time HENMT: COMMON NORMALS: normocephalic, atraumatic and hearing grossly normal bilaterally HEAD & SCALP: normocephalic and atraumatic Resp: AUSCULTATION: crackles and wheezes Cardio: COMMON NORMALS: regular rate, regular rhythm and No murmurs present (Cardio) RATE: regular rate RHYTHM: regular rhythm GI: COMMON NORMALS: Soft to palpation and No hepatosplenomegaly present AUSCULTATION: Yes normoactive bowel sounds PALPATION: Yes Soft to palpation, No Tenderness to palpation present (GI), No Guarding due to palpation present (GI) and Yes No hepatosplenomegaly present Extremity: GENERAL: Yes edema OTHER: Edema bilateral in the lower legs +2 to the mid calf Neuro: SENSORIUM/ORIENTATION: Yes oriented to person, Yes oriented to place and Yes oriented to time Skin: COMMON NORMALS: no rashes or lesions noted GENERAL SKIN EXAM: no rashes or lesions noted Course Vital Signs: Vital signs: Vital Signs Temperature 98.9 F 12/20/24 20:11 Pulse Rate 68 12/21/24 06:00 Respiratory Rate 18 12/21/24 06:00 Blood Pressure 143/77 12/21/24 06:00 Pulse Oximetry 91 12/21/24 06:00 Oxygen Delivery Me thod Nasal Cannula 12/21/24 06:00 Oxygen Flow Rate 6 12/21/24 06:00 MDM - Chest Pain Medical Decision Making Labs and imaging reviewed admitted for congestive heart failure and influenza A with increased oxygen requirement. Lasix given. No infiltrates on chest x-ray. Patient presented with atypical chest pain was cardiac enzymes and were trending negative his EKG did not show any acute ST changes Medical Records I reviewed the patient's medical records. Lab Data I reviewed the patient's lab results. 12/21/24 03:42 12/21/24 03:42 Radiology Impressions Chest X-Ray 12/20/24 13:22 IMPRESSION: 1. Negative chest. Laboratory Results WBC 5.27 10^3/uL (3.29-11.43) 12/20/24 13:32 RBC 5.24 10^6/uL (3.85-5.65) 12/20/24 13:32 Hgb 16.70 g/dL (11.27-16.99) 12/20/24 13:32 Hct 50.9 % (37-53) 12/20/24 13:32 MCV 97.1 fl (82-101) 12/20/24 13:32 MCH 31.9 pg (27-33) 12/20/24 13:32 MCHC 32.8 g/dL (30-55) 12/20/24 13:32 RDW 13.7 % (12.1-15.1) 12/20/24 13:32 Plt Count 191 10^3/cmm (157-399) 12/20/24 13:32 MPV 11.1 fL (7.4-10.4) H 12/20/24 13:32 Neut % (Auto) 61.1 % 12/20/24 13:32 Lymph % (Auto) 21.8 % 12/20/24 13:32 [place] % (Auto) 15.6 % 12/20/24 13:32 Eos % (Auto) 0.2 % 12/20/24 13:32 Baso % (Auto) 0.9 % 12/20/24 13:32 Neut # (Auto) 3.22 10^3/uL (1.8-7.7) 12/20/24 13:32 Lymph # (Auto) 1.2 10^3/uL (0.8-4.8) 12/20/24 13:32 [place] # (Auto) 0.8 10^3/uL (0.2-0.9) 12/20/24 13:32 Eos # (Auto) 0.0 10^3/uL (0.0-0.8) 12/20/24 13:32 Baso # (Auto) 0.1 10^3/uL (0.0-0.1) 12/20/24 13:32 Nucleated RBC % (auto) 0 % 12/20/24 13:32 Nucleated RBCs # 0.0 /100WBC 12/20/24 13:32 Sodium 137 mmol/L (136-145) 12/20/24 13:32 Potassium 4.3 mmol/L (3.5-5.1) 12/20/24 13:32 Chloride 96 mmol/L (98-107) L 12/20/24 13:32 Carbon Dioxide 29 mmol/L (22-29) 12/20/24 13:32 Anion Gap 16.3 (5-19) 12/20/24 13:32 BUN 14 mg/dL (6-20) 12/20/24 13:32 Creatinine 1.0 mg/dL (0.7-1.2) 12/20/24 13:32 GFR Calculation 76.7 mL/min (90-130) L 12/20/24 13:32 Glucose 114 mg/dL (65-115) 12/20/24 13:32 Calculated Osmolality 285 mOsm/kg (285-295) 12/20/24 13:32 Lactic Acid 1.0 mmol/L (0.5-2.2) 12/20/24 13:32 Calcium 8.2 mg/dL (8.5-10.5) L 12/20/24 13:32 Total Bilirubin 0.3 mg/dL (0.15-1.2) 12/20/24 13:32 AST 53 U/L (0-40) H 12/20/24 13:32 ALT 44 U/L (0-41) H 12/20/24 13:32 Alkaline Phosphatase 74 U/L (40-130) 12/20/24 13:32 Troponin T Baseline 19 ng/L (0-15) H 12/20/24 13:32 Troponin T 120 Minute 17.07 ng/L (0-15) H 12/20/24 15:28 Delta Troponin T -1.93 ABS# (0-10) L 12/20/24 15:28 NT-Pro-B Natriuret Pep 41 pg/mL (0-125) 12/20/24 13:32 Total Protein 7.1 g/dL (6.6-8.7) 12/20/24 13:32 Albumin 3.7 g/dL (3.5-5.2) 12/20/24 13:32 Globulin 3.4 g/dL (1.3-4.6) 12/20/24 13:32 Urine Color Dark yellow (Yellow) A 12/20/24 15:03 Urine Appearance Clear (CLEAR) 12/20/24 15:03 Urine pH 5.0 (5-7) 12/20/24 15:03 Ur Specific [place] 1.030 (1.005-1.030) 12/20/24 15:03 Urine Protein 2+ (Negative) A 12/20/24 15:03 Urine Glucose (UA) Negative (Normal) 12/20/24 15:03 Urine Ketones Negative (Negative) 12/20/24 15:03 Urine Blood Negative (Negative) 12/20/24 15:03 Urine Nitrate Negative (Negative) 12/20/24 15:03 Urine Bilirubin 1+ (Negative) H 12/20/24 15:03 Urine Urobilinogen 1.0 mg/dL (Negative) 12/20/24 15:03 Ur Leukocyte Esterase Negative (Negative) 12/20/24 15:03 Urine RBC 0-2 /hpf (0-2) 12/20/24 15:03 Urine WBC 0-5 /hpf (0-5) 12/20/24 15:03 Ur Squamous Epith Cells 0-5 /hpf (0-5) 12/20/24 15:03 Amorphous Sediment Not Reportable 12/20/24 15:03 Urine Bacteria None seen /hpf (NONE) 12/20/24 15:03 Hyaline Casts 22.33 /lpf 12/20/24 15:03 Fine Granular Casts 0-4 /lpf H 12/20/24 15:03 Influenza A (PCR) Positive (Negative) 12/20/24 13:25 Influenza Type B (PCR) Negative (Negative) 12/20/24 13:25 RSV (PCR) Negative (Negative) 12/20/24 13:25 SARS-CoV-2 (PCR) Negative (Negative) 12/20/24 13:25 All radiology interpretation(s) finalized by discharge Discharge Plan Discharge Patient Disposition: Admitted As Inpatient Admit Provider: Mery Duarte Clinical Impression: Acute hypoxic respiratory failure, Influenza A, Atypical chest pain, CHF (congestive heart failure) Condition: Stable Coding Level of Care Code ED River Tester for Olamide Bermeo
[2024-12-20 13:40] LABS: Basophils # 0.1 10^3/uL (0.0-0.1); Basophils % 0.9 %; Eosinophils % 0.2 %; Hematocrit 50.9 % (37-53); Lymphocytes # 1.2 10^3/uL (0.8-4.8); Lymphocytes % 21.8 %; Mean Corpuscular HGB Conc 32.8 g/dL (30-55); Mean Corpuscular Hemoglobin 31.9 pg (27-33); Mean Corpuscular Volume 97.1 fl (82-101); Mean Platelet Volume 11.1 fL (7.4-10.4); Monocytes # 0.8 10^3/uL (0.2-0.9); Monocytes % 15.6 %; Neutrophils # 3.22 10^3/uL (1.8-7.7); Neutrophils % 61.1 %; Nucleated Red Blood Cells % 0 %; Platelet Count 191 10^3/cmm (157-399); Red Blood Count 5.24 10^6/uL (3.85-5.65); Red Cell Distribution Width 13.7 % (12.1-15.1); White Blood Count 5.27 10^3/uL (3.29-11.43)
[2024-12-20 13:59] LABS: Alanine Aminotransferase 44 U/L (0-41); Albumin Level 3.7 g/dL (3.5-5.2); Alkaline Phosphatase 74 U/L (40-130); Anion Gap 16.3 (5-19); Aspartate Amino Transferase 53 U/L (0-40); Blood Urea Nitrogen 14 mg/dL (6-20); Calcium 8.2 mg/dL (8.5-10.5); Carbon Dioxide 29 mmol/L (22-29); Chloride 96 mmol/L (98-107); Creatinine Clr Calc Pharmacy 138.7809; Globulin 3.4 g/dL (1.3-4.6); Glomerular Filtration Rate 76.7 mL/min (90-130); Glucose 114 mg/dL (65-115); Osmolality Calculated 285 mOsm/kg (285-295); Potassium 4.3 mmol/L (3.5-5.1); Sodium 137 mmol/L (136-145); Total Bilirubin 0.3 mg/dL (0.15-1.2); Total Protein 7.1 g/dL (6.6-8.7)
[2024-12-20 14:00] LABS: Troponin(5th) Baseline 19 ng/L (0-15)
[2024-12-20 15:10] LABS: Bilirubin Urine 1+ (Negative); Blood Urine Negative (Negative); Glucose Urine UA Negative (Normal); Ketones Urine Negative (Negative); Leukocyte Esterase Urine Negative (Negative); Nitrate Urine Negative (Negative); Protein Urine 2+ (Negative); Urine Appearance Clear (CLEAR); Urine Color Dark Yellow (Yellow)
[2024-12-20 15:15] LABS: Add Urine Microscopic? YES; Bacteria Urine None Seen /hpf; Hyaline Casts Urine 22.33 /lpf; RBC Urine 0-2 /hpf (0-2); Squamous Epithelial Cell Urine 0-5 /hpf (0-5); WBC Urine 0-5 /hpf (0-5)
--- NOTE | 2024-12-20 15:23 | ECG_ITS ---
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 Measurements Intervals [place] Rate: 70 P: 47 VT: 143 QRS: 70 QRSD: 122 T: 37 QT: 408 QTc: 443 Interpretive Statements SINUS RHYTHM POSSIBLE LEFT ATRIAL ENLARGEMENT [-0.1mV P-WAVE IN V1/V2] RIGHT BUNDLE BRANCH BLOCK [120+ ms QRS DURATION, UPRIGHT V1, 40+ ms S IN I/aVL/V4/V5/V6] Compared to ECG 12/20/2024 13:14:25 Right bundle-branch block now present Incomplete right bundle-branch block no longer present Electronically Signed On 12-20-2024 20:30:12 BOILER REPAIRMAN by Domingo Guerra M.D. [id number] [id number]
[2024-12-20 15:31] LABS: UA Slide Review UA Slide Review Perf
[2024-12-20 15:31] LABS: NT Pro B Type Natriuretic Pept 41 pg/mL (0-125)
[2024-12-20 15:33] LABS: Add Urine Culture? No
[2024-12-20 15:34] LABS: Fine Granular Casts Urine 0-4 /lpf
[2024-12-20] MEDS: FUROsemide 10 mg/mL SDV 10mL 60 MG IVP (15:40)
[2024-12-20 15:44] LABS: Influenza A POSITIVE (Negative); Influenza B NEGATIVE (Negative); Respiratory Syncytial Virus Ce NEGATIVE (Negative); SARS-CoV-2 PCR NEGATIVE (Negative)
[2024-12-20] MEDS: ketorolac 30 mg/mL INJ IVP (16:07)
[2024-12-20 16:18] LABS: Troponin 5 2HR 17.07 ng/L (0-15)
[2024-12-20 16:20] LABS: Troponin 5 2HR Delta -1.93 ABS# (0-10)
--- NOTE | 2024-12-20 18:33 | USCV_ITS ---
David Carrion Age: 59 Gender: M : 1965 Exam Date: 12/20/2024 23:39 Ordering Phys: Mery Duarte MD Technologist: SHIRLEY [place] [facility] [place]: assess for CHF morbid obesity, sleep apnea, influenza isolation, febrile, chest pain BP: 115 / 70 HR: 62 Rhythm: Sinus Technical Quality: Adequate with OPTISON MEASUREMENTS (Male / Female) Normal Values 2D ECHO LV Diastolic Diameter PLAX 5.4 cm 4.2 - 5.9 / 3.9 - 5.3 cm IVS Diastolic Thickness 1.7 cm 0.6 - 1.0 / 0.6 - 0.9 cm IVS Systolic Thickness 2.0 cm LVPW Diastolic Thickness 1.6 cm 0.6 - 1.0 / 0.6 - 0.9 cm LVPW Systolic Thickness 2.0 cm LVOT Diameter 2.2 cm LV Ejection Fraction 2D Teich 56.4 % LV Ejection Fraction MOD 4C 50.2 % LV Ejection Fraction MOD 2C 53.6 % LV Ejection Fraction 2C AL 55.3 % LA Diameter 4.4 cm Aorta at Sinotubular Diameter 3.1 cm IVC Diameter 1.3 cm M-MODE LA Ao Ratio MM 1.7 AV Cusp Separation MM 2.3 cm DOPPLER AV Peak Velocity 120.0 cm/s LVOT Peak Velocity 126.0 cm/s AV Area Cont Eq vti 4.3 cm squared AV Area Cont Eq pk 4.1 cm squared MV Peak Velocity 93.0 cm/s MV Area PHT 2.6 cm squared Mitral E to A Ratio 1.5 TV Peak E Velocity 39.0 cm/s PV Peak Velocity 86.0 cm/s FINDINGS Left Ventricle Technically limited quality echocardiogram because of poor ultrasonic windows. LV systolic function is normal with EF of 55 to 60%. No regional wall motion abnormalities are seen. Right Ventricle Normal in size and function. Right Atrium Normal in size Left Atrium Normal in size Mitral Valve Grossly normal. Mild mitral regurgitation. Aortic Valve Not well-visualized. No significant stenosis or regurgitation Tricuspid Valve Not well visualized Pulmonic Valve Not visualized Pericardium Grossly normal Aorta Normal in size IVC Appears to be normal CONCLUSIONS Technically limited quality echocardiogram because of poor ultrasonic windows. LV systolic function is normal with EF 55 to 60%. Mild mitral regurgitation. Valvular structures are not well-visualized. No comparison studies are available. Torito Gonzalez MD (Electronically Signed) Final Date: 22 December 2024 13:25 S
--- NOTE | 2024-12-20 18:37 | PM.HP ---
Providers/Chief Complaint Admitting Physician: Mery Duarte MD Primary Care Provider: Tristin Byrne DO Chief Complaint: cp, right hand numb History of Present Illness David Carrion is a 59 year old male with past medical history of sleep apnea, who is resenting to the hospital today with 2 to 3 days of flulike symptoms, headache, fever at home. Today he started to experience central chest discomfort with numbness in the left arm therefore he presented into the emergency room. Upon arrival EKG was without any acute ST-T wave changes. Baseline troponin at 19. He tested positive for influenza A. Chest x-ray was negative for any consolidation, however per personal review appears to have a small left pleural effusion. He was noted to have bilateral lower extremity swelling. He was hypoxic with O2 sat of 88% on room air. Orthopnea positive. Review of Systems General: Reports: 10 or more systems reviewed and unremarkable except in HPI and below Const: Denies: fever(s), chills or body aches Eyes: Denies: change in vision, blurry vision or photophobia ENMT: Reports: hoarseness; Denies: throat pain, enlarged tonsils, odynophagia or nasal congestion Card: Denies: chest pain, palpitations, irregular heart rhythm, edema, swelling of feet/ankles, lightheadedness, pre-syncope, dyspnea on exertion or orthopnea Resp: Denies: dyspnea, productive cough, non-productive cough, wheezing, stridor, pain on inspiration, change in phlegm color, hemoptysis or chest congestion GI: Denies: abdominal pain, nausea, vomiting, hematemesis, coffee ground emesis, dysphagia, heartburn, diarrhea, constipation, GI cramping, change in stool character, hematochezia or melena : Denies: flank pain, dysuria, urinary frequency, urinary urgency, urinary hesitancy or hematuria Musc: Denies: neck pain, back pain, extremity pain, joint swelling, joint warmth or deformity Neuro: Denies: headache(s), numbness in extremities, weakness in extremities, sensory changes, difficulty walking, frequent falls, dizziness, vertigo, behavioral changes, Slurred speech present or seizure-like activity Psych: Denies: anxiety, depression, suicidal ideation or homicidal ideation Endo: Denies: polyuria, polydipsia, tired all the time, cold intolerance or hot flashes Isaac/Lymph: Denies: easy bruising or easy bleeding Medications/Allergies Home Medications ?Medication ?Instructions ?Recorded ?Confirmed ?Last Taken ?Type No Known Home Medications 12/20/24 12/20/24 Unknown History Allergies Allergy/AdvReac Type Severity Reaction Status Date / Time No Known Allergies Allergy Verified 12/20/24 13:16 PFSH Acute PFSH: Medical History Family history of colon cancer History of diverticulitis Surgical History History of rotator cuff surgery Left shoulder 1987 History of nasal surgery Hx of colonoscopy 2013 Family History Father Cancer Colon Cancer Social History Smoking and tobacco/nicotine status: current every day tobacco/nicotine user Second hand smoke exposure: No Alcohol intake: never Substance/Drug Use: never Adopted: No Caregiver/support person: No Lives independently: Yes Household members: friend(s) Housing: House Marital status: Single Number of children: 5 Highest education level completed: 10th Grade service: No Current occupational status: disabled Vitals/I&O/Wt Last Vital Signs Temp 98.2 F 12/20/24 13:11 Pulse 65 12/20/24 18:16 Resp 22 H 12/20/24 17:00 BP 134/66 12/20/24 18:16 Pulse Ox 91 12/20/24 18:16 O2 Del Method Room Air 12/20/24 13:11 Weight last 48 hrs Weight 172.507 kg Weight 188.241 kg Physical Exam Narrative: General: No acute distress, AO x3 HEENT: PERRLA, pupils bilaterally equal and reactive, pallors not present Chest: Normal vesicular breath sounds, no added sounds, equal good air entry bilaterally CVS: S1-S2 regular, no murmurs, no tachycardia, no gallops, no rubs Abdomen: Soft, nontender, no organomegaly, bowel sounds present Neuro: No focal deficits, no facial deformity, AO x3, power 5/5 in all limbs Data 12/20/24 13:32 12/20/24 13:32 Other Labs: Radiology Impressions Chest X-Ray 12/20/24 13:22 IMPRESSION: 1. Negative chest. Laboratory Results WBC 5.27 10^3/uL (3.29-11.43) 12/20/24 13:32 RBC 5.24 10^6/uL (3.85-5.65) 12/20/24 13:32 Hgb 16.70 g/dL (11.27-16.99) 12/20/24 13:32 Hct 50.9 % (37-53) 12/20/24 13:32 MCV 97.1 fl (82-101) 12/20/24 13:32 MCH 31.9 pg (27-33) 12/20/24 13:32 MCHC 32.8 g/dL (30-55) 12/20/24 13:32 RDW 13.7 % (12.1-15.1) 12/20/24 13:32 Plt Count 191 10^3/cmm (157-399) 12/20/24 13:32 MPV 11.1 fL (7.4-10.4) H 12/20/24 13:32 Neut % (Auto) 61.1 % 12/20/24 13:32 Lymph % (Auto) 21.8 % 12/20/24 13:32 [place] % (Auto) 15.6 % 12/20/24 13:32 Eos % (Auto) 0.2 % 12/20/24 13:32 Baso % (Auto) 0.9 % 12/20/24 13:32 Neut # (Auto) 3.22 10^3/uL (1.8-7.7) 12/20/24 13:32 Lymph # (Auto) 1.2 10^3/uL (0.8-4.8) 12/20/24 13:32 [place] # (Auto) 0.8 10^3/uL (0.2-0.9) 12/20/24 13:32 Eos # (Auto) 0.0 10^3/uL (0.0-0.8) 12/20/24 13:32 Baso # (Auto) 0.1 10^3/uL (0.0-0.1) 12/20/24 13:32 Nucleated RBC % (auto) 0 % 12/20/24 13:32 Nucleated RBCs # 0.0 /100WBC 12/20/24 13:32 Sodium 137 mmol/L (136-145) 12/20/24 13:32 Potassium 4.3 mmol/L (3.5-5.1) 12/20/24 13:32 Chloride 96 mmol/L (98-107) L 12/20/24 13:32 Carbon Dioxide 29 mmol/L (22-29) 12/20/24 13:32 Anion Gap 16.3 (5-19) 12/20/24 13:32 BUN 14 mg/dL (6-20) 12/20/24 13:32 Creatinine 1.0 mg/dL (0.7-1.2) 12/20/24 13:32 GFR Calculation 76.7 mL/min (90-130) L 12/20/24 13:32 Glucose 114 mg/dL (65-115) 12/20/24 13:32 Calculated Osmolality 285 mOsm/kg (285-295) 12/20/24 13:32 Lactic Acid 1.0 mmol/L (0.5-2.2) 12/20/24 13:32 Calcium 8.2 mg/dL (8.5-10.5) L 12/20/24 13:32 Total Bilirubin 0.3 mg/dL (0.15-1.2) 12/20/24 13:32 AST 53 U/L (0-40) H 12/20/24 13:32 ALT 44 U/L (0-41) H 12/20/24 13:32 Alkaline Phosphatase 74 U/L (40-130) 12/20/24 13:32 Troponin T Baseline 19 ng/L (0-15) H 12/20/24 13:32 Troponin T 120 Minute 17.07 ng/L (0-15) H 12/20/24 15:28 Delta Troponin T -1.93 ABS# (0-10) L 12/20/24 15:28 NT-Pro-B Natriuret Pep 41 pg/mL (0-125) 12/20/24 13:32 Total Protein 7.1 g/dL (6.6-8.7) 12/20/24 13:32 Albumin 3.7 g/dL (3.5-5.2) 12/20/24 13:32 Globulin 3.4 g/dL (1.3-4.6) 12/20/24 13:32 Urine Color Dark yellow (Yellow) A 12/20/24 15:03 Urine Appearance Clear (CLEAR) 12/20/24 15:03 Urine pH 5.0 (5-7) 12/20/24 15:03 Ur Specific [place] 1.030 (1.005-1.030) 12/20/24 15:03 Urine Protein 2+ (Negative) A 12/20/24 15:03 Urine Glucose (UA) Negative (Normal) 12/20/24 15:03 Urine Ketones Negative (Negative) 12/20/24 15:03 Urine Blood Negative (Negative) 12/20/24 15:03 Urine Nitrate Negative (Negative) 12/20/24 15:03 Urine Bilirubin 1+ (Negative) H 12/20/24 15:03 Urine Urobilinogen 1.0 mg/dL (Negative) 12/20/24 15:03 Ur Leukocyte Esterase Negative (Negative) 12/20/24 15:03 Urine RBC 0-2 /hpf (0-2) 12/20/24 15:03 Urine WBC 0-5 /hpf (0-5) 12/20/24 15:03 Ur Squamous Epith Cells 0-5 /hpf (0-5) 12/20/24 15:03 Amorphous Sediment Not Reportable 12/20/24 15:03 Urine Bacteria None seen /hpf (NONE) 12/20/24 15:03 Hyaline Casts 22.33 /lpf 12/20/24 15:03 Fine Granular Casts 0-4 /lpf H 12/20/24 15:03 Influenza A (PCR) Positive (Negative) 12/20/24 13:25 Influenza Type B (PCR) Negative (Negative) 12/20/24 13:25 RSV (PCR) Negative (Negative) 12/20/24 13:25 SARS-CoV-2 (PCR) Negative (Negative) 12/20/24 13:25 Micro: Microbiology 12/20/24 15:37 Blood Culture - Preliminary Blood SPECIMEN COLLECTED 12/20/24 15:28 Blood Culture - Preliminary Blood SPECIMEN COLLECTED A&P Assessment and plan (1) Chest pain: Patient presenting to the hospital today with central chest pain radiating into the left arm. EKG without any acute ST-T wave changes Baseline troponin at 19. Will check serial troponins at 2 and 6 hours. Screening D-dimer, if elevated to perform CTA of the chest to assess for possible PE. Risk stratification for coronary disease with lipid panel, HbA1c. (2) Swelling of lower extremity: Bilateral lower extremity swelling. Raises concern for heart failure versus pulmonary hypertension. Echocardiogram ordered. He has received Lasix 60 mg IV in the emergency room. Closely monitor urine output and renal function. Patient is Lasix na?ve therefore will monitor renal function before administering more doses. Check BNP. (3) Influenza A: Start Tamiflu 75 mg p.o. twice daily No noted gross consolidation on chest x-ray. (4) Obstructive sleep apnea: Continue CPAP at nighttime (5) Hypoxia: May be related to obesity hypoventilation, influenza pneumonia, CHF, assessment is currently ongoing. D-dimer pending. Plan DVT prophylaxis Lovenox 40 mg p.o. daily. Full code PDMP PDMP Reviewed: Not Reviewed Attestations Medical Necessity Statement*: Needs assessment for chest pain, new onset of lower extremity swelling, possible new diagnosis of CHF. Coding Level of Care Code Acute Code for [facility] Diagnoses Chest pain R07.9 Swelling of lower extremity M79.89 Influenza A J10.1 Obstructive sleep apnea G47.33 Hypoxia R09.02
[2024-12-20] MEDS: enoxaparin 40 mg/0.4 mL Syringe SUBCUT (19:13)
--- NOTE | 2024-12-20 19:23 | ECG_ITS ---
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
[2024-12-20 20:52] LABS: D Dimer 0.93 ug/mLFEU (0-0.59)
[2024-12-20 20:59] LABS: Troponin 5 6HR 19.46 ng/L (0-15); Troponin 5 6HR Delta 0.46 ng/L (0-12)
[2024-12-20 21:05] LABS: Chol HDL Ratio 4.07 mg/dL (1.0-5.00); Cholesterol 114 mg/dL (0-200); HDL Cholesterol 28 mg/dL (60-100); LDL Cholesterol Calculated 64 mg/dL (50-129); LDL HDL Ratio 2.29 RATIO (0.00-3.22); NT Pro B Type Natriuretic Pept < 36 pg/mL (0-125); Thyroid Stimulating Hormone 3.33 uIU/mL (0.27-4.20); Triglycerides 110 mg/dL (0-150)
[2024-12-20 21:19] LABS: Estmated Average Glucose 154
[2024-12-21] VITALS (20 sets, daily range): BP systolic 114–174; BP diastolic 56–89; PULSE 56–76; RESP 13–28; TEMP 36.9–38; O2SAT 84–95
[2024-12-21] MEDS: acetaminophen 325 mg Tablet 650 MG PO (00:24)
[2024-12-21 04:07] LABS: Basophils % 0.9 %; Eosinophils % 0.7 %; Hematocrit 49.3 % (37-53); Lymphocytes # 1.3 10^3/uL (0.8-4.8); Lymphocytes % 29.2 %; Mean Corpuscular HGB Conc 31.8 g/dL (30-55); Mean Corpuscular Hemoglobin 31.2 pg (27-33); Mean Platelet Volume 10.9 fL (7.4-10.4); Monocytes # 0.7 10^3/uL (0.2-0.9); Monocytes % 14.6 %; Neutrophils # 2.47 10^3/uL (1.8-7.7); Neutrophils % 54.6 %; Nucleated Red Blood Cells % 0 %; Platelet Count 185 10^3/cmm (157-399); Red Blood Count 5.03 10^6/uL (3.85-5.65); Red Cell Distribution Width 13.8 % (12.1-15.1); White Blood Count 4.52 10^3/uL (3.29-11.43)
[2024-12-21 04:29] LABS: Alanine Aminotransferase 46 U/L (0-41); Albumin Level 3.5 g/dL (3.5-5.2); Alkaline Phosphatase 71 U/L (40-130); Anion Gap 16.1 (5-19); Aspartate Amino Transferase 51 U/L (0-40); Blood Urea Nitrogen 15 mg/dL (6-20); Calcium 8.3 mg/dL (8.5-10.5); Carbon Dioxide 29 mmol/L (22-29); Chloride 98 mmol/L (98-107); Creatinine Clr Calc Pharmacy 144.4906; Globulin 3.2 g/dL (1.3-4.6); Glomerular Filtration Rate 86.7 mL/min (90-130); Glucose 128 mg/dL (65-115); Magnesium 2.3 mg/dL (1.7-2.3); Osmolality Calculated 290 mOsm/kg (285-295); Potassium 4.1 mmol/L (3.5-5.1); Sodium 139 mmol/L (136-145); Total Bilirubin 0.3 mg/dL (0.15-1.2); Total Protein 6.7 g/dL (6.6-8.7)
[2024-12-21] MEDS: perflutren protein-a microsphr 0.22 mg/mL SDV 3 mL IV (06:01)
[2024-12-21] MEDS: pantoprazole DR 40 mg Tablet PO (08:12)
[2024-12-21] MEDS: oseltamivir phosphate 75 mg Capsule PO ×2 (08:12→17:31)
--- NOTE | 2024-12-21 11:03 | PC.NURSE ---
Patient transferred to CSU 107
--- NOTE | 2024-12-21 12:35 | CT_ITS ---
WS: [id number] CT CHEST ANGIOGRAPHY WITH REFORMATS HISTORY: assess for PE TECHNIQUE: Contiguous axial images are obtained through the chest during arterial injection of intravenous contrast. Images are reconstructed to evaluate the pulmonary arteries. MIP imaging also reviewed. All CT scans at [facility] use at least one of these dose optimization techniques: automated exposure control; mA and/or kV adjustment per patient size (includes targeted exams where dose is matched to clinical indication); or iterative reconstruction. CONTRAST: Omnipaque 350; 100 mL IV. DLP: 522.40 mGy.cm COMPARISON: None available. Adequate opacification of the central pulmonary arteries. Beyond the lobar branches the opacification is suboptimal. No central pulmonary embolism. Mild atherosclerosis aorta. No RIGHT heart strain. No pericardial or pleural effusion. Breathing motion artifact. There are scattered nodular reticulations which in part are due to motion. May be due to a mild fluid overload or pneumonitis. No dense consolidation. Mildly reactive lymph nodes. Large hiatal hernia. Hepatic steatosis. No adrenal mass. Increase in thoracic kyphosis. Schmorl's nodes defects at multiple levels in the thoracic spine. No acute fracture. CT/CT angio chest PE protcl [id number] IMPRESSION: 1. Suboptimal evaluation of the pulmonary arteries. 2. No central pulmonary embolism. 3. Scattered mild reticular nodules. Suspect pneumonitis or mild fluid overloa d. 4. Large hiatal hernia.
[2024-12-21] MEDS: iohexol 350 mg/mL 500 mL Btl (per mL) IV (13:33)
--- NOTE | 2024-12-21 13:46 | PC.NURSE ---
Patient taken by wheelchair to CT by PRINCE Massey. Patient tolerated well.
--- NOTE | 2024-12-21 14:26 | P.PN_ITS ---
Subjective 2 Subjective: Oxygen requirement up to 6 L/min today. Tmax 100.4. Medications: Reviewed: Yes Vitals/I&O/Wt Last Vital Signs Temp 99.9 F H 12/21/24 12:00 Pulse 68 12/21/24 13:46 Resp 28 H 12/21/24 12:00 BP 134/72 12/21/24 12:00 Pulse Ox 93 12/21/24 12:00 O2 Del Method Nasal Cannula 12/21/24 12:00 O2 Flow Rate 5 12/21/24 12:00 12/20/24 12/21/24 12/21/24 22:59 06:59 14:59 Intake Total 680 / 680 240 / 240 Output Total 300 / 300 300 / 600 Balance -300 / -300 380 / 80 240 / 240 Weight last 48 hrs Weight 174.633 kg Weight 172.507 kg Weight 188.241 kg Physical Exam 2 Narrative: General: No acute distress, AO x3 HEENT: PERRLA, pupils bilaterally equal and reactive, pallors not present Chest: Normal vesicular breath sounds, no added sounds, equal good air entry bilaterally CVS: S1-S2 regular, no murmurs, no tachycardia, no gallops, no rubs Abdomen: Soft, nontender, no organomegaly, bowel sounds present Neuro: No focal deficits, no facial deformity, AO x3, power 5/5 in all limbs Data 12/21/24 03:42 12/21/24 03:42 Micro: Microbiology 12/20/24 15:37 Blood Culture - Preliminary Blood SPECIMEN COLLECTED 12/20/24 15:28 Blood Culture - Preliminary Blood SPECIMEN COLLECTED A&P Assessment and plan (1) Chest pain: Patient presenting to the hospital today with central chest pain radiating into the left arm. EKG without any acute ST-T wave changes Baseline troponin at 19. Will check serial troponins at 2 and 6 hours. Screening D-dimer, if elevated to perform CTA of the chest to assess for possible PE. Risk stratification for coronary disease with lipid panel, HbA1c. (2) Swelling of lower extremity: Bilateral lower extremity swelling. Raises concern for heart failure versus pulmonary hypertension. Echocardiogram ordered. He has received Lasix 60 mg IV in the emergency room. Closely monitor urine output and renal function. Patient is Lasix na?ve therefore will monitor renal function before administering more doses. Check BNP. (3) Influenza A: Start Tamiflu 75 mg p.o. twice daily No noted gross consolidation on chest x-ray. (4) Obstructive sleep apnea: Continue CPAP at nighttime (5) Hypoxia: May be related to obesity hypoventilation, influenza pneumonia, CHF, assessment is currently ongoing. D-dimer pending. Plan DVT prophylaxis Lovenox 40 mg p.o. daily. Full code December 21, 2024 Patient's oxygen requirement has climbed to 6 L/min today. Tmax 100.4 Fahrenheit. D-dimer mildly elevated at 0.9. BNP negative. Troponin series without significant delta at 2 or 6 hours. Patient is more tachypneic today. Respiratory rate up to 28/min. Check ABG . Urine output 600 cc. echocardiogram pending. CHF still remains on the differential, however with a negative BNP would need to explore other possibilities. Awaiting echocardiogram. Possibility of pulmonary hypertension given significant obstructive sleep apnea. Continue Lasix 60 mg IV every 24 hours. Monitor urine output and kidney function. Additionally check CTA of the chest to evaluate for PE given hypoxia and elevated D-dimer. Continue Tamiflu 75 mg p.o. twice daily. Tmax 100.4 follow-up, likely related to acute influenza infection. No leukocytosis. Chest x-ray without gross consolidation. Changed to inpatient admission given worsening hypoxia today. PDMP PDMP Reviewed: Not Reviewed Attestations 2 Medical Necessity Statement*: worsening Hypoxia, CTA, continued assessment as above. Coding Level of Care Code Acute Code for [facility] Fwd Diagnoses Chest pain R07.9 Swelling of lower extremity M79.89 Influenza A J10.1 Obstructive sleep apnea G47.33 Hypoxia R09.02
[2024-12-21] MEDS: FUROsemide 10 mg/mL SDV 10mL 60 MG IVP (14:48)
[2024-12-21] MEDS: levoFLOXacin 750 mg Tablet PO (14:48)
[2024-12-21] MEDS: dexamethasone 10 mg/mL INJ 6 MG IVP (14:48)
[2024-12-21 16:04] LABS: ABG PH Result 7.36 (7.35-7.45); Arterial Blood Gas Hematocrit 50.5 % (42-52); Base Excess ABG 6.6 mmol/L (-2.0-2.0); Blood Gas Allen Test Pos; Blood Gas Operator Identificat AMH; Blood Gas Sample Site Radial, left; Blood Gas Sample Type Arterial; HCO3 ABG 34.6 mmol/L (22-26); Oxygen Device NC; PO2 ABG 71.6 mmHg (80.0-100.0); PO2 FiO2 Ratio Arterial Blood 198
[2024-12-21 16:06] LABS: ABG PCO2 61.5 mmHg (35-45)
[2024-12-21] MEDS: enoxaparin 40 mg/0.4 mL Syringe SUBCUT (17:31)
[2024-12-21] MEDS: methylPREDNISolone sod succ 40 mg/mL INJ IVP (21:21)
[2024-12-21] MEDS: ipratropium-albuterol 3 mL Neb INHALATION (21:45)
[2024-12-21] MEDS: budesonide 0.5 mg/2 mL Neb INHALATION (21:45)
[2024-12-22] VITALS (10 sets, daily range): BP systolic 109–163; BP diastolic 70–77; PULSE 57–71; RESP 12–22; TEMP 36.4–37; O2SAT 91–97
[2024-12-22 03:45] LABS: Basophils % 0.4 %; Eosinophils % 0.7 %; Hematocrit 49.3 % (37-53); Lymphocytes # 0.6 10^3/uL (0.8-4.8); Lymphocytes % 22.2 %; Mean Corpuscular Hemoglobin 31.2 pg (27-33); Mean Corpuscular Volume 97.2 fl (82-101); Mean Platelet Volume 10.5 fL (7.4-10.4); Monocytes # 0.2 10^3/uL (0.2-0.9); Monocytes % 7.4 %; Neutrophils # 1.96 10^3/uL (1.8-7.7); Neutrophils % 68.9 %; Nucleated Red Blood Cells % 0 %; Platelet Count 186 10^3/cmm (157-399); Red Blood Count 5.07 10^6/uL (3.85-5.65); Red Cell Distribution Width 13.5 % (12.1-15.1); White Blood Count 2.84 10^3/uL (3.29-11.43)
[2024-12-22 04:12] LABS: Alanine Aminotransferase 47 U/L (0-41); Albumin Level 3.6 g/dL (3.5-5.2); Alkaline Phosphatase 70 U/L (40-130); Anion Gap 17.6 (5-19); Aspartate Amino Transferase 39 U/L (0-40); Blood Urea Nitrogen 15 mg/dL (6-20); Calcium 8.7 mg/dL (8.5-10.5); Carbon Dioxide 31 mmol/L (22-29); Chloride 93 mmol/L (98-107); Globulin 3.4 g/dL (1.3-4.6); Glomerular Filtration Rate 76.7 mL/min (90-130); Glucose 177 mg/dL (65-115); Osmolality Calculated 289 mOsm/kg (285-295); Potassium 4.6 mmol/L (3.5-5.1); Sodium 137 mmol/L (136-145); Total Bilirubin 0.2 mg/dL (0.15-1.2)
[2024-12-22] MEDS: methylPREDNISolone sod succ 40 mg/mL INJ IVP ×3 (06:13→21:31)
--- NOTE | 2024-12-22 07:48 | PC.RESP ---
Pt reports inability to take nebulized medications. Pt refuses.
[2024-12-22] MEDS: FUROsemide 10 mg/mL SDV 4mL 40 MG IVP (09:18)
[2024-12-22] MEDS: levoFLOXacin 750 mg Tablet PO (09:18)
[2024-12-22] MEDS: oseltamivir phosphate 75 mg Capsule PO ×2 (09:18→17:41)
[2024-12-22] MEDS: pantoprazole DR 40 mg Tablet PO (09:18)
--- NOTE | 2024-12-22 14:07 | PM.PN ---
Subjective Subjective: No new complaints today. Oxygen requirement at 2.5 L/min. CTA of the chest performed yesterday was negative for any PE. Medications: Reviewed: Yes Vitals/I&O/Wt Last Vital Signs Temp 97.6 F 12/22/24 11:13 Pulse 65 12/22/24 11:13 Resp 18 12/22/24 11:13 BP 112/70 12/22/24 11:13 Pulse Ox 97 12/22/24 11:13 O2 Del Method Nasal Cannula 12/22/24 11:13 O2 Flow Rate 4 12/22/24 07:49 12/21/24 12/22/24 12/22/24 22:59 06:59 14:59 Intake Total 720 / 1680 960 / 960 Output Total 900 / 900 200 / 1100 1450 / 1450 Balance -180 / 780 -200 / 580 -490 / -490 Weight last 48 hrs Weight 178.262 kg Weight 174.633 kg Weight 172.507 kg Physical Exam Narrative: General: No acute distress, AO x3 HEENT: PERRLA, pupils bilaterally equal and reactive, pallors not present Chest: Normal vesicular breath sounds, no added sounds, equal good air entry bilaterally CVS: S1-S2 regular, no murmurs, no tachycardia, no gallops, no rubs Abdomen: Soft, nontender, no organomegaly, bowel sounds present Neuro: No focal deficits, no facial deformity, AO x3, power 5/5 in all limbs Data 12/22/24 03:01 12/22/24 03:01 Micro: Microbiology 12/20/24 15:37 Blood Culture - Preliminary Blood NEGATIVE TO DATE 12/20/24 15:28 Blood Culture - Preliminary Blood NEGATIVE TO DATE A&P Assessment and plan (1) Chest pain: Patient presenting to the hospital today with central chest pain radiating into the left arm. EKG without any acute ST-T wave changes Baseline troponin at 19. Will check serial troponins at 2 and 6 hours. Screening D-dimer, if elevated to perform CTA of the chest to assess for possible PE. Risk stratification for coronary disease with lipid panel, HbA1c. (2) Swelling of lower extremity: Bilateral lower extremity swelling. Raises concern for heart failure versus pulmonary hypertension. Echocardiogram ordered. He has received Lasix 60 mg IV in the emergency room. Closely monitor urine output and renal function. Patient is Lasix na?ve therefore will monitor renal function before administering more doses. Check BNP. (3) Influenza A: Start Tamiflu 75 mg p.o. twice daily No noted gross consolidation on chest x-ray. (4) Obstructive sleep apnea: Continue CPAP at nighttime (5) Hypoxia: May be related to obesity hypoventilation, influenza pneumonia, CHF, assessment is currently ongoing. D-dimer pending. Plan DVT prophylaxis Lovenox 40 mg p.o. daily. Full code December 21, 2024 Patient's oxygen requirement has climbed to 6 L/min today. Tmax 100.4 Fahrenheit. D-dimer mildly elevated at 0.9. BNP negative. Troponin series without significant delta at 2 or 6 hours. Patient is more tachypneic today. Respiratory rate up to 28/min. Check ABG . Urine output 600 cc. echocardiogram pending. CHF still remains on the differential, however with a negative BNP would need to explore other possibilities. Awaiting echocardiogram. Possibility of pulmonary hypertension given significant obstructive sleep apnea. Continue Lasix 60 mg IV every 24 hours. Monitor urine output and kidney function. Additionally check CTA of the chest to evaluate for PE given hypoxia and elevated D-dimer. Continue Tamiflu 75 mg p.o. twice daily. Tmax 100.4 follow-up, likely related to acute influenza infection. No leukocytosis. Chest x-ray without gross consolidation. Changed to inpatient admission given worsening hypoxia today. December 22, 2024 Oxygen requirements being weaned down to 4 L/min today. Attempting to wean down to 2.5 L today. Afebrile last 24 hours. CTA of the chest was negative for PE no gross consolidation is noted. ABG was performed yesterday which shows compensated respiratory acidosis. pCO2 elevated in the 60s, normal pH, overall clinical impression is that of longstanding hypercapnia, likely related to undiagnosed COPD versus obesity hypoventilation. Patient today reports he has not been compliant with his BiPAP since October of last year as it makes him feel claustrophobic. Patient is a smoker. 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 Echocardiogram today showing an LVEF of 60%, right-sided pressures unable to be estimated on the echo. Overall clinical impression that of likely COPD exacerbation triggered by acute viral illness. Started on IV steroids and scheduled nebulization with DuoNeb and budesonide yesterday. Patient states that albuterol treatments are making him feel very jittery , will switch to Xopenex. Developing mild leukopenia today. Most likely likely related to acute viral illness. Continue to monitor for now. PDMP PDMP Reviewed: Not Reviewed Attestations Medical Necessity Statement*: Acute viral illness, new hypoxia, COPD exacerbation, management as above. Coding Level of Care Code Acute Code for [facility] Fwd High MDM includes number and complexity of problems actively addressed during encounter, amount and/or complexity of data reviewed/ordered and described risk of complication, morbidity or mortality of management as documented Diagnoses Chest pain R07.9 Swelling of lower extremity M79.89 Influenza A J10.1 Obstructive sleep apnea G47.33 Hypoxia R09.02
[2024-12-22] MEDS: levalbuterol 1.25 mg/3 mL Neb INHALATION (14:41)
[2024-12-22] MEDS: ipratropium 0.5 mg/2.5 mL Neb INHALATION (14:41)
[2024-12-22] MEDS: enoxaparin 40 mg/0.4 mL Syringe SUBCUT (17:41)
[2024-12-23] VITALS (9 sets, daily range): BP systolic 126–150; BP diastolic 65–76; PULSE 55–71; RESP 13–19; TEMP 36.4–37.1; O2SAT 90–95
[2024-12-23 04:24] LABS: Basophils % 0.1 %; Eosinophils % 0.1 %; Hematocrit 49.1 % (37-53); Lymphocytes # 1.2 10^3/uL (0.8-4.8); Lymphocytes % 16.5 %; Mean Corpuscular Hemoglobin 31.8 pg (27-33); Mean Corpuscular Volume 96.3 fl (82-101); Mean Platelet Volume 10.9 fL (7.4-10.4); Monocytes # 0.6 10^3/uL (0.2-0.9); Monocytes % 8.2 %; Neutrophils # 5.49 10^3/uL (1.8-7.7); Neutrophils % 74.7 %; Nucleated Red Blood Cells % 0 %; Platelet Count 189 10^3/cmm (157-399); Red Cell Distribution Width 13.1 % (12.1-15.1); White Blood Count 7.35 10^3/uL (3.29-11.43)
[2024-12-23 04:50] LABS: Alanine Aminotransferase 46 U/L (0-41); Albumin Level 3.5 g/dL (3.5-5.2); Alkaline Phosphatase 65 U/L (40-130); Anion Gap 15.6 (5-19); Aspartate Amino Transferase 30 U/L (0-40); Blood Urea Nitrogen 18 mg/dL (6-20); Calcium 8.9 mg/dL (8.5-10.5); Carbon Dioxide 32 mmol/L (22-29); Chloride 96 mmol/L (98-107); Creatinine Clr Calc Pharmacy 147.4036; Globulin 3.4 g/dL (1.3-4.6); Glomerular Filtration Rate 86.7 mL/min (90-130); Glucose 201 mg/dL (65-115); Osmolality Calculated 296 mOsm/kg (285-295); Potassium 4.6 mmol/L (3.5-5.1); Sodium 139 mmol/L (136-145); Total Bilirubin 0.3 mg/dL (0.15-1.2); Total Protein 6.9 g/dL (6.6-8.7)
[2024-12-23] MEDS: methylPREDNISolone sod succ 40 mg/mL INJ IVP ×2 (06:20→13:42)
[2024-12-23] MEDS: oseltamivir phosphate 75 mg Capsule PO ×2 (09:15→17:29)
[2024-12-23] MEDS: pantoprazole DR 40 mg Tablet PO (09:15)
[2024-12-23] MEDS: levoFLOXacin 750 mg Tablet PO (09:15)
[2024-12-23] MEDS: FUROsemide 10 mg/mL SDV 4mL 40 MG IVP (09:15)
--- NOTE | 2024-12-23 14:45 | PM.PN ---
Subjective Subjective: Patient states he feels symptomatically much better today. Feels like his breathing is easier. Even with Xopenex states that he feels jittery though somewhat better than albuterol. Medications: Reviewed: Yes Vitals/I&O/Wt Last Vital Signs Temp 97.6 F 12/23/24 11:25 Pulse 56 L 12/23/24 11:25 Resp 14 12/23/24 11:25 BP 143/76 12/23/24 11:25 Pulse Ox 92 12/23/24 11:25 O2 Del Method Nasal Cannula 12/23/24 11:25 O2 Flow Rate 2 12/23/24 08:00 12/22/24 12/23/24 12/23/24 22:59 06:59 14:59 Intake Total 400 / 1360 960 / 960 Output Total 550 / 2000 600 / 2600 900 / 900 Balance -150 / -640 -600 / -1240 60 / 60 Weight last 48 hrs Weight 175.404 kg Weight 178.262 kg Physical Exam Narrative: General: No acute distress, AO x3 HEENT: PERRLA, pupils bilaterally equal and reactive, pallors not present Chest: Normal vesicular breath sounds, no added sounds, equal good air entry bilaterally CVS: S1-S2 regular, no murmurs, no tachycardia, no gallops, no rubs Abdomen: Soft, nontender, no organomegaly, bowel sounds present Neuro: No focal deficits, no facial deformity, AO x3, power 5/5 in all limbs Data 12/23/24 03:58 12/23/24 03:58 A&P Assessment and plan (1) Chest pain: Patient presenting to the hospital today with central chest pain radiating into the left arm. EKG without any acute ST-T wave changes Baseline troponin at 19. Will check serial troponins at 2 and 6 hours. Screening D-dimer, if elevated to perform CTA of the chest to assess for possible PE. Risk stratification for coronary disease with lipid panel, HbA1c. (2) Swelling of lower extremity: Bilateral lower extremity swelling. Raises concern for heart failure versus pulmonary hypertension. Echocardiogram ordered. He has received Lasix 60 mg IV in the emergency room. Closely monitor urine output and renal function. Patient is Lasix na?ve therefore will monitor renal function before administering more doses. Check BNP. (3) Influenza A: Start Tamiflu 75 mg p.o. twice daily No noted gross consolidation on chest x-ray. (4) Obstructive sleep apnea: Continue CPAP at nighttime (5) Hypoxia: May be related to obesity hypoventilation, influenza pneumonia, CHF, assessment is currently ongoing. D-dimer pending. Plan DVT prophylaxis Lovenox 40 mg p.o. daily. Full code December 21, 2024 Patient's oxygen requirement has climbed to 6 L/min today. Tmax 100.4 Fahrenheit. D-dimer mildly elevated at 0.9. BNP negative. Troponin series without significant delta at 2 or 6 hours. Patient is more tachypneic today. Respiratory rate up to 28/min. Check ABG . Urine output 600 cc. echocardiogram pending. CHF still remains on the differential, however with a negative BNP would need to explore other possibilities. Awaiting echocardiogram. Possibility of pulmonary hypertension given significant obstructive sleep apnea. Continue Lasix 60 mg IV every 24 hours. Monitor urine output and kidney function. Additionally check CTA of the chest to evaluate for PE given hypoxia and elevated D-dimer. Continue Tamiflu 75 mg p.o. twice daily. Tmax 100.4 follow-up, likely related to acute influenza infection. No leukocytosis. Chest x-ray without gross consolidation. Changed to inpatient admission given worsening hypoxia today. December 22, 2024 Oxygen requirements being weaned down to 4 L/min today. Attempting to wean down to 2.5 L today. Afebrile last 24 hours. CTA of the chest was negative for PE no gross consolidation is noted. ABG was performed yesterday which shows compensated respiratory acidosis. pCO2 elevated in the 60s, normal pH, overall clinical impression is that of longstanding hypercapnia, likely related to undiagnosed COPD versus obesity hypoventilation. Patient today reports he has not been compliant with his BiPAP since October of last year as it makes him feel claustrophobic. Patient is a smoker. 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 Echocardiogram today showing an LVEF of 60%, right-sided pressures unable to be estimated on the echo. Overall clinical impression that of likely COPD exacerbation triggered by acute viral illness. Started on IV steroids and scheduled nebulization with DuoNeb and budesonide yesterday. Patient states that albuterol treatments are making him feel very jittery , will switch to Xopenex. Developing mild leukopenia today. Most likely likely related to acute viral illness. Continue to monitor for now. December 23, 2024 Patient feels symptomatically better today. He underwent home oxygen evaluation today, oxygen saturation at room air today was at 90%, with exertion 6-minute exercise test remained between 91 to 92%. He does require oxygen when he goes to sleep. Likely this is related to his underlying sleep apnea. Patient complains of jitters and paresthesias with nebulization with either albuterol or Xopenex. We will change nebulization to Xopenex as needed. He does not have any significant wheezing on exam today. Transition IV Lasix to oral Lasix 40 mg daily. Transition IV steroids to prednisone 40 mg p.o. daily. Change Xopenex and elation to as needed. Discontinue budesonide inhalation. Continue Tamiflu to complete a 5-day course. Overall patient is showing signs of clinical improvement. If remains stable with transition from IV to oral medications likely to discharge in the upcoming 24 hours. He is encouraged to comply with BiPAP use. He may have underlying COPD given compensated respiratory acidosis as noted on ABG. Discussed with him following up with primary care physician as outpatient and undergoing PFT evaluation for a formal diagnosis. PDMP PDMP Reviewed: Not Reviewed Attestations Medical Necessity Statement*: Transition IV to oral medication today. Closely monitor with this transition over next 24 hours. Would likely be able to return home tomorrow. Coding Level of Care Code Acute Code for [facility] Fwd Diagnoses Chest pain R07.9 Swelling of lower extremity M79.89 Influenza A J10.1 Obstructive sleep apnea G47.33 Hypoxia R09.02
[2024-12-23] MEDS: enoxaparin 40 mg/0.4 mL Syringe SUBCUT (17:29)
[2024-12-24] VITALS: BP 135/68; PULSE 61; RESP 21; TEMP 36.9; O2SAT 91
[2024-12-24 05:55] VITALS: BP 151/87; PULSE 53; RESP 17; TEMP 36.6; O2SAT 95
[2024-12-24 06:00] VITALS: PULSE 51
[2024-12-24 08:00] VITALS: BP 137/83; PULSE 52; RESP 16; TEMP 36.7; O2SAT 93; O2SAT 97
[2024-12-24] MEDS: oseltamivir phosphate 75 mg Capsule PO (09:31)
[2024-12-24] MEDS: FUROsemide 40 mg Tablet PO (09:31)
[2024-12-24] MEDS: levoFLOXacin 750 mg Tablet PO (09:31)
[2024-12-24] MEDS: predniSONE 20 mg Tablet 40 MG PO (09:31)
[2024-12-24] MEDS: pantoprazole DR 40 mg Tablet PO (09:32)
[2024-12-24 12:00] VITALS: BP 126/66; PULSE 64; RESP 16; TEMP 36.6; O2SAT 98
--- NOTE | 2024-12-24 12:57 | PC.SOCIAL ---
Patient didnt qualify for oxygen and now is requesting transport home. CM called [facility] and got a andrew of $43
--- NOTE | 2024-12-24 13:03 | PC.SOCIAL ---
CM contacte patient and he states he has found a ride home.
[2024-12-24 13:23] VITALS: BP 126/66; PULSE 55; RESP 20; O2SAT 92
--- NOTE | 2024-12-24 14:13 | PC.NURSE ---
discharge instructions given and explained.pt verb understanding of instructions.medications provided by [facility]s to beds program.discharged via w/c to exit at this time
--- NOTE | 2024-12-24 14:57 | PM.DCS ---
Discharge Providers Date of Admission: 12/21/24 14:34 Date of Discharge: December 24, 2024 Attending Provider at Admission: Mery Duarte MD Attending Provider at Discharge: Mery Duarte MD Primary Care Provider: Tristin Byrne DO Diagnoses at Discharge Discharge Diagnosis (1) Chest pain: Status: Acute (2) Swelling of lower extremity: Status: Acute (3) Influenza A: Status: Acute (4) Obstructive sleep apnea: Status: Acute (5) Hypoxia: Status: Acute Reason for Visit Reason for Visit: cp, right hand numb Brief History: Patient is a 59-year-old male with a past medical history of sleep apnea who presented with 2 to 3 days of flulike symptoms, headache and fever at home. Thereafter he had left arm numbness and presented into the emergency room. EKG was without any ST-T wave changes. Troponin series without significant delta. He tested positive for influenza A. He was hypoxic with O2 sat of 88% on room air. He is previously never been on oxygen. He had an elevated D-dimer therefore CTA of the chest was performed which was negative for PE. Subsequent evaluation during the hospital course showed an ABG with chronic hypercapnic respiratory compensated acidosis, which may point to an underlying diagnosis of COPD versus longstanding untreated sleep apnea. Patient has a known diagnosis of severe sleep apnea however is not compliant with CPAP over the past few months. He has additionally suspected to have pulmonary hypertension, echocardiogram was performed however was limited by poor ultrasonic windows. His LV systolic function was grossly normal with EF of 55 to 60%. He had mild mitral regurgitation. Valvular structures were unable to be visualized. PASP was unable to be estimated. He did receive Lasix IV during the course of admission, was started on scheduled nebulization with Xopenex and budesonide (he did not tolerate albuterol) and IV steroids. He He received Tamiflu for influenza A and levofloxacin. He underwent a home oxygen evaluation which showed a room air saturation at rest of 90%, with 6-minute exercise test his O2 sats were at 91%. Overall patient did not need supplemental O2 based on these parameters.he is encouraged to comply with his CPAP usage and also highly recommended to follow-up with primary care physician for a pulmonary function test. 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 Physical Exam Narrative: General: No acute distress, AO x3 HEENT: PERRLA, pupils bilaterally equal and reactive, pallors not present Chest: Normal vesicular breath sounds, no added sounds, equal good air entry bilaterally CVS: S1-S2 regular, no murmurs, no tachycardia, no gallops, no rubs Abdomen: Soft, nontender, no organomegaly, bowel sounds present Neuro: No focal deficits, no facial deformity, AO x3, power 5/5 in all limbs Extremities: Healthy surgical dressing present on the right hip, mild tenderness, soft no erythema. Discharge Data Studies Completed and Pending Completed Studies During Hospitalization Category Date Time Status CTA PE [CT angio chest PE protcl [id number]] Routine Cat Scan 12/21/24 12:35 Completed XR chest 1V portable [id number] Stat Exams 12/20/24 13:22 Completed CV. echo wo/w contrast [id number] Routine Ultrasound 12/20/24 18:33 Completed Pending at discharge Category Date Time Status Blood Culture Stat Lab 12/20/24 15:37 Results Radiology Impressions Chest X-Ray 12/20/24 13:22 IMPRESSION: 1. Negative chest. Chest CTA 12/21/24 12:35 IMPRESSION: 1. Suboptimal evaluation of the pulmonary arteries. 2. No central pulmonary embolism. 3. Scattered mild reticular nodules. Suspect pneumonitis or mild fluid overload. 4. Large hiatal hernia. Laboratory Results WBC 7.35 10^3/uL (3.29-11.43) 12/23/24 03:58 RBC 5.10 10^6/uL (3.85-5.65) 12/23/24 03:58 Hgb 16.20 g/dL (11.27-16.99) 12/23/24 03:58 Hct 49.1 % (37-53) 12/23/24 03:58 MCV 96.3 fl (82-101) 12/23/24 03:58 MCH 31.8 pg (27-33) 12/23/24 03:58 MCHC 33.0 g/dL (30-55) 12/23/24 03:58 RDW 13.1 % (12.1-15.1) 12/23/24 03:58 Plt Count 189 10^3/cmm (157-399) 12/23/24 03:58 MPV 10.9 fL (7.4-10.4) H 12/23/24 03:58 Neut % (Auto) 74.7 % 12/23/24 03:58 Lymph % (Auto) 16.5 % 12/23/24 03:58 [place] % (Auto) 8.2 % 12/23/24 03:58 Eos % (Auto) 0.1 % 12/23/24 03:58 Baso % (Auto) 0.1 % 12/23/24 03:58 Neut # (Auto) 5.49 10^3/uL (1.8-7.7) 12/23/24 03:58 Lymph # (Auto) 1.2 10^3/uL (0.8-4.8) 12/23/24 03:58 [place] # (Auto) 0.6 10^3/uL (0.2-0.9) 12/23/24 03:58 Eos # (Auto) 0.0 10^3/uL (0.0-0.8) 12/23/24 03:58 Baso # (Auto) 0.0 10^3/uL (0.0-0.1) 12/23/24 03:58 Nucleated RBC % (auto) 0 % 12/23/24 03:58 Nucleated RBCs # 0.0 /100WBC 12/23/24 03:58 D-Dimer 0.93 ug/mLFEU (0-0.59) H 12/20/24 20:09 Specimen Type Arterial 12/21/24 15:53 Sample Site Radial, left 12/21/24 15:53 ABG pH 7.36 (7.35-7.45) 12/21/24 15:53 ABG pCO2 61.5 mmHg (35-45) H* 12/21/24 15:53 ABG pO2 71.6 mmHg (80.0-100.0) L 12/21/24 15:53 ABG PO2/FiO2 Ratio 198 12/21/24 15:53 ABG HCO3 34.6 mmol/L (22-26) H 12/21/24 15:53 ABG Base Excess 6.6 mmol/L (-2.0-2.0) H 12/21/24 15:53 Carlos Test Pos 12/21/24 15:53 Hematocrit 50.5 % (42-52) 12/21/24 15:53 O2 Delivery Device Nc 12/21/24 15:53 O2 Liters/Min 4.0 % 12/21/24 15:53 FiO2 36.0 % 12/21/24 15:53 Clinical Training Coordinator ID Amh 12/21/24 15:53 Sodium 139 mmol/L (136-145) 12/23/24 03:58 Potassium 4.6 mmol/L (3.5-5.1) 12/23/24 03:58 Chloride 96 mmol/L (98-107) L 12/23/24 03:58 Carbon Dioxide 32 mmol/L (22-29) H 12/23/24 03:58 Anion Gap 15.6 (5-19) 12/23/24 03:58 BUN 18 mg/dL (6-20) 12/23/24 03:58 Creatinine 0.9 mg/dL (0.7-1.2) 12/23/24 03:58 GFR Calculation 86.7 mL/min (90-130) L 12/23/24 03:58 Glucose 201 mg/dL (65-115) H 12/23/24 03:58 Estimat Average Glucose 154 12/20/24 20:09 Hemoglobin A1c 7.0 % (4.0-6.0) H 12/20/24 20:09 Calculated Osmolality 296 mOsm/kg (285-295) H 12/23/24 03:58 Lactic Acid 1.0 mmol/L (0.5-2.2) 12/20/24 13:32 Calcium 8.9 mg/dL (8.5-10.5) 12/23/24 03:58 Magnesium 2.3 mg/dL (1.7-2.3) 12/21/24 03:42 Total Bilirubin 0.3 mg/dL (0.15-1.2) 12/23/24 03:58 AST 30 U/L (0-40) 12/23/24 03:58 ALT 46 U/L (0-41) H 12/23/24 03:58 Alkaline Phosphatase 65 U/L (40-130) 12/23/24 03:58 Troponin T Baseline 19 ng/L (0-15) H 12/20/24 13:32 Troponin T 120 Minute 17.07 ng/L (0-15) H 12/20/24 15:28 Delta Troponin T -1.93 ABS# (0-10) L 12/20/24 15:28 Troponin T Hi Sens 6Hr 19.46 ng/L (0-15) H 12/20/24 20:09 Troponin T Hi Sens 6Hr Delta 0.46 ng/L (0-12) 12/20/24 20:09 NT-Pro-B Natriuret Pep < 36 pg/mL (0-125) 12/20/24 20:09 Total Protein 6.9 g/dL (6.6-8.7) 12/23/24 03:58 Albumin 3.5 g/dL (3.5-5.2) 12/23/24 03:58 Globulin 3.4 g/dL (1.3-4.6) 12/23/24 03:58 Triglycerides 110 mg/dL (0-150) 12/20/24 20:09 Cholesterol 114 mg/dL (0-200) 12/20/24 20:09 LDL Cholesterol, Calc 64 mg/dL (50-129) 12/20/24 20:09 HDL Cholesterol 28 mg/dL (60-100) L 12/20/24 20:09 LDL/HDL Ratio 2.29 RATIO (0.00-3.22) 12/20/24 20:09 Cholesterol/HDL Ratio 4.07 mg/dL (1.0-5.00) 12/20/24 20:09 TSH 3.33 uIU/mL (0.27-4.20) 12/20/24 20:09 Urine Color Dark yellow (Yellow) A 12/20/24 15:03 Urine Appearance Clear (CLEAR) 12/20/24 15:03 Urine pH 5.0 (5-7) 12/20/24 15:03 Ur Specific [place] 1.030 (1.005-1.030) 12/20/24 15:03 Urine Protein 2+ (Negative) A 12/20/24 15:03 Urine Glucose (UA) Negative (Normal) 12/20/24 15:03 Urine Ketones Negative (Negative) 12/20/24 15:03 Urine Blood Negative (Negative) 12/20/24 15:03 Urine Nitrate Negative (Negative) 12/20/24 15:03 Urine Bilirubin 1+ (Negative) H 12/20/24 15:03 Urine Urobilinogen 1.0 mg/dL (Negative) 12/20/24 15:03 Ur Leukocyte Esterase Negative (Negative) 12/20/24 15:03 Urine RBC 0-2 /hpf (0-2) 12/20/24 15:03 Urine WBC 0-5 /hpf (0-5) 12/20/24 15:03 Ur Squamous Epith Cells 0-5 /hpf (0-5) 12/20/24 15:03 Amorphous Sediment Not Reportable 12/20/24 15:03 Urine Bacteria None seen /hpf (NONE) 12/20/24 15:03 Hyaline Casts 22.33 /lpf 12/20/24 15:03 Fine Granular Casts 0-4 /lpf H 12/20/24 15:03 Influenza A (PCR) Positive (Negative) 12/20/24 13:25 Influenza Type B (PCR) Negative (Negative) 12/20/24 13:25 RSV (PCR) Negative (Negative) 12/20/24 13:25 SARS-CoV-2 (PCR) Negative (Negative) 12/20/24 13:25 Vitals Last Vital Signs Temp 97.9 F 12/24/24 12:00 Pulse 55 L 12/24/24 13:23 Resp 20 H 12/24/24 13:23 BP 126/66 12/24/24 13:23 Pulse Ox 92 12/24/24 13:23 O2 Del Method Nasal Cannula 12/24/24 12:00 O2 Flow Rate 2 12/23/24 14:00 FiO2 2 12/24/24 08:00 Discharge Plan Discharge Patient Disposition: Home Condition: Stable Prescriptions: New prednisone 20 mg Tablet 40 mg PO DAILY 5 Days Qty: 5 0RF pantoprazole 40 mg Tablet,Delayed Release (Dr/Ec) 40 mg PO DAILY 30 Days Qty: 30 0RF oseltamivir 75 mg Capsule 75 mg PO BID 3 Days Qty: 6 0RF levofloxacin 750 mg Tablet 750 mg PO DAILY 3 Days Qty: 3 0RF levalbuterol tartrate [Xopenex HFA] 45 mcg/actuation HFA aerosol inhaler 1 inh inhalation Q6H PRN (Reason: shortness of breath or wheezing) Qty: 15 0RF furosemide [Lasix] 20 mg tablet 20 mg PO DAILY 14 Days Qty: 30 0RF Rx Instructions: take once daily for 14 days, then prn tiotropium bromide [Spiriva with HandiHaler] 18 mcg capsule, w/inhalation device 1 cap inhalation DAILY Qty: 30 0RF Rx Instructions: puncture 1 cap using device; one dose = 2 inhalations Discharge Orders: Discharge Order (Routine); Ordered 12/24/24 Ordered By: Mery Duarte Referrals: Tristin Byrne, DO [Primary Care Provider] - 7-10 days ( We have notified your physician's clinic of the need for a follow-up appointment to be scheduled. If you have not heard from them within the next 2 business days, please call them directly. ) Patient Instructions: Furosemide (By mouth) (Lasix), Prednisone (By mouth) (Prednisone Intensol, Prednicot, Deltasone, Twin), Levofloxacin (By mouth) (Levaquin, Levaquin Leva-shauna), Levalbuterol (By breathing), Oseltamivir (By mouth) (Tamiflu), Pantoprazole (By mouth), Tiotropium (By breathing) (Spiriva, Spiriva Respimat), Heart Failure (DC), Hiatal Hernia (DC), Influenza (DC), COPD (Chronic Obstructive Pulmonary Disease) (DC), Hypoxia (GEN), Acute Respiratory Failure (ED), CHF Stoplight, Chest Pain Stoplight, Opioid Safety, Obstructive Sleep Apnea Discharge Attestations Time Spent in Discharge Care*: greater than 30 min Quality Metrics Clinical Quality Measures [ No reported AMI, CVA or VTE this stay] Coding Level of Care Code Acute Code for Chg Fwd Diagnoses Chest pain R07.9 Swelling of lower extremity M79.89 Influenza A J10.1 Obstructive sleep apnea G47.33 Hypoxia R09.02
== END 2024-12-24 14:14 | disposition home or self-care (01) | DRG 194 ==
LOC: ER 13:26 → ICU 18:17 → ER IP 12-21 06:26 → ICU 12-21 06:26 → CSU 12-21 11:05
PROVIDERS: Admitting Provider Student in an Organized Health Care Education/Training Program; Emergency Provider Family Medicine; PCP Family Medicine; Visit Provider Student in an Organized Health Care Education/Training Program
DX: J10.1 Influenza due to other identified influenza virus with other respiratory manifestations (principal); E66.2 Morbid (severe) obesity with alveolar hypoventilation; Z68.43 Body mass index [BMI] 50.0-59.9, adult; J44.1 Chronic obstructive pulmonary disease with (acute) exacerbation; Z91.199 Patient's noncompliance with other medical treatment and regimen due to unspecified reason; I27.20 Pulmonary hypertension, unspecified; I34.0 Nonrheumatic mitral (valve) insufficiency; R07.9 Chest pain, unspecified; F17.200 Nicotine dependence, unspecified, uncomplicated; F40.240 Claustrophobia; M79.89 Other specified soft tissue disorders; R09.02 Hypoxemia
CPT/HCPCS: 36415; 36600; 71045; 71275; 80053; 80061; 81001; 82803; 83036; 83605; 83735; 83880; 84443; 84484; 85025; 85378; 87040; 87637; 93005; 94640; 94660; 94760; 96372; 96374; 96375; 96376; 99285; C8929; G0378; J1100; J1650; J1885; J1940; J2919; J7512; J7614; J7626; J7644

== ENCOUNTER → 2025-05-31 13:04 | Outpatient (BNVA) | payer OTHER, SELFPAY | PROVIDERS: PCP Family Medicine; Visit Provider Family Medicine | DX: G47.33 Obstructive sleep apnea (adult) (pediatric) (principal); E66.9 Obesity, unspecified | CPT/HCPCS: 80053; 80061; 83036; 85025 ==

== ENCOUNTER → 2025-10-31 09:07 | Outpatient (BNVA) | payer OTHER, SELFPAY | PROVIDERS: PCP Family Medicine; Visit Provider Family Medicine | DX: E11.9 Type 2 diabetes mellitus without complications (principal); E66.9 Obesity, unspecified; G47.33 Obstructive sleep apnea (adult) (pediatric) | CPT/HCPCS: 80053; 80061; 83036; 85025 ==